=== PATIENT | female | born 1965 | race Asian ===

== ENCOUNTER 2016-09-10 19:33 | Emergency (ER) | payer OTHER ==
[2016-09-10] MEDS ORDERED: IV NORMAL SALINE 1000ML BAG 1,000 ML IV ONE (20:15)
[2016-09-10] MEDS ORDERED: KETOROLAC TROMETHAMINE 30 MG/ML INJ. IV ONE (20:15)
[2016-09-10] MEDS ORDERED: DIPHENHYDRAMINE 50 MG/ML VIAL. IVP ONE (20:15)
[2016-09-10] MEDS ORDERED: METOCLOPRAMIDE HCL 10 MG/2 ML VIAL. IV ONE (20:15)
[2016-09-10 20:16] LABS: BASO % 0 % (0-3); EOS % 2 % (0-3); HEMATOCRIT 34.8 % (36.0-47.0); HEMOGLOBIN 11.2 g/dL (12.0-15.5); LYMPH # 2.5 x10^3/uL (1.0-4.8); LYMPH % 26 % (24-48); MEAN CORPUSCULAR HEMOGLOBIN 23 pg (25-35); MEAN CORPUSCULAR HGB CONC 32 g/dL (31-37); MEAN CORPUSCULAR VOLUME 71 fL (79-100); MONO % 6 % (0-9); NEUT % 66 % (31-73); PLATELET COUNT 268 x10^3/uL (140-400); RED BLOOD COUNT 4.88 x10^6/uL (3.50-5.40); RED CELL DISTRIBUTION WIDTH 16.5 % (11.5-14.5); WHITE BLOOD COUNT 9.5 x10^3/uL (4.0-11.0)
[2016-09-10] MEDS ORDERED: BUTA1CAP29 PO (20:34)
--- NOTE | 2016-09-10 20:35 | PHYS DOC ---
Past Medical History Past Medical History: No Pertinent History Past Surgical History: No Surgical History Alcohol Use: None Drug Use: None Adult General Chief Complaint Chief Complaint: HEADACHE HPI HPI 51-year-old female presents with one-day history of a headache. Patient states she has a history of headaches and this is similar to previous. She denies any fever or neck pain. She denies any lateralizing neurologic weakness. She has had some tingling in her fingers. She denies any photo or phonophobia. She states the headache came on gradually. The history was taken from the daughter who acted as a band and cuff cutter. [] Review of Systems Review of Systems Constitutional: Denies fever or chills [] Eyes: Denies change in visual acuity, redness, or eye pain [] HENT: Denies nasal congestion or sore throat [] Respiratory: Denies cough or shortness of breath [] Cardiovascular: No additional information not addressed in HPI [] GI: Denies abdominal pain, nausea, vomiting, bloody stools or diarrhea [] : Denies dysuria or hematuria [] Musculoskeletal: Denies back pain or joint pain [] Integument: Denies rash or skin lesions [] Neurologic: Denies headache, focal weakness or sensory changes [] Endocrine: Denies polyuria or polydipsia [] Current Medications Current Medications Current Medications Medications (Trade) Dose Ordered Sig/Dionicio Start Time Stop Time Status Last Admin Dose Admin Diphenhydramine HCl 25 mg 25 mg 1X ONCE 09/10/16 20:15 09/10/16 20:16 DC 09/10/16 20:28 25 MG Ketorolac Tromethamine (Toradol) 30 mg 1X ONCE 09/10/16 20:15 09/10/16 20:16 DC 09/10/16 20:27 30 MG Metoclopramide HCl (Reglan) 10 mg 1X ONCE 09/10/16 20:15 09/10/16 20:16 DC 09/10/16 20:28 10 MG Sodium Chloride (Iv Sodium Chloride 0.9% 1000ml Bag) 1,000 ml @ 1,000 mls/hr 1X ONCE 09/10/16 20:15 09/10/16 21:14 DC 09/10/16 20:27 1,000 MLS/HR Allergies Allergies Allergies Coded Allergies Type Severity Reaction Last Updated Verified No Known Drug Allergies 4/3/17 No Physical Exam Physical Exam Constitutional: Well developed, well nourished, no acute distress, non-toxic appearance. [] HENT: Normocephalic, atraumatic, bilateral external ears normal, oropharynx moist, no oral exudates, nose normal. [] Eyes: PERRLA, EOMI, conjunctiva normal, no discharge. [] Neck: Normal range of motion, no tenderness, supple, no stridor. [] Cardiovascular:Heart rate regular rhythm, no murmur [] Lungs & Thorax: Bilateral breath sounds clear to auscultation [] Abdomen: Bowel sounds normal, soft, no tenderness, no masses, no pulsatile masses. [] Skin: Warm, dry, no erythema, no rash. [] Back: No tenderness, no CVA tenderness. [] Extremities: No tenderness, no cyanosis, no clubbing, ROM intact, no edema. [] Neurologic: Alert and oriented X 3, normal motor function, normal sensory function, no focal deficits noted. [] Psychologic: Affect normal, judgement normal, mood normal. [] Current Patient Data Vital Signs Vital Signs Date Time Temp Pulse Resp B/P Pulse Ox O2 Delivery O2 Flow Rate FiO2 09/10/16 19:45 99.5 74 20 158/88 98 Room Air 99.5 Lab Values Laboratory Tests Test 09/10/16 20:00 White Blood Count 9.5x10^3/uL (4.0-11.0) Red Blood Count 4.88x10^6/uL (3.50-5.40) Hemoglobin 11.2g/dL (12.0-15.5) L Hematocrit 34.8% (36.0-47.0) L Mean Corpuscular Volume 71fL (79-100) L Mean Corpuscular Hemoglobin 23pg (25-35) L Mean Corpuscular Hemoglobin Concent 32g/dL (31-37) Red Cell Distribution Width 16.5% (11.5-14.5) H Platelet Count 268x10^3/uL (140-400) Neutrophils (%) (Auto) 66% (31-73) Lymphocytes (%) (Auto) 26% (24-48) Monocytes (%) (Auto) 6% (0-9) Eosinophils (%) (Auto) 2% (0-3) Basophils (%) (Auto) 0% (0-3) Neutrophils # (Auto) 6.3x10^3uL (1.8-7.7) Lymphocytes # (Auto) 2.5x10^3/uL (1.0-4.8) Monocytes # (Auto) 0.6x10^3/uL (0.0-1.1) Eosinophils # (Auto) 0.1x10^3/uL (0.0-0.7) Basophils # (Auto) 0.0x10^3/uL (0.0-0.2) Platelet Estimate Adequate (ADEQUATE) Hypochromasia Mod Poikilocytosis Slight Microcytosis Mod Sodium Level 144mmol/L (136-145) Potassium Level 3.1mmol/L (3.5-5.1) L Chloride Level 107mmol/L (98-107) Carbon Dioxide Level 26mmol/L (21-32) Anion Gap 11 (6-14) Blood Urea Nitrogen 12mg/dL (7-20) Creatinine 0.6mg/dL (0.6-1.0) Estimated GFR (Cockcroft-Gault) 105.4 BUN/Creatinine Ratio 20 (6-20) Glucose Level 107mg/dL (70-99) H Calcium Level 9.2mg/dL (8.5-10.1) Total Bilirubin 0.2mg/dL (0.2-1.0) Aspartate Amino Transferase (AST) 11U/L (15-37) L Alanine Aminotransferase (ALT) 16U/L (14-59) Alkaline Phosphatase 77U/L (46-116) Total Protein 8.1g/dL (6.4-8.2) Albumin 3.8g/dL (3.4-5.0) Albumin/Globulin Ratio 0.9 (1.0-1.7) L Laboratory Tests 09/10/16 20:00 Laboratory Tests 09/10/16 20:00 EKG EKG [] Radiology/Procedures Radiology/Procedures [] Course & Med Decision Making Course & Med Decision Making Pertinent Labs and Imaging studies reviewed. (See chart for details) [ED course: Evaluation reveals a 51-year-old female in mild to moderate distress secondary to headache. CT scan did not show any acute findings. She was given IV fluids Reglan and Toradol and Benadryl which completely alleviated her headache she states she feels much better and is ready to go home.] Dragon Disclaimer Dragon Disclaimer This electronic medical record was generated, in whole or in part, using a voice recognition dictation system. Departure Departure Impression: Primary Impression: Migraine Disposition: HOME, SELF-CARE Condition: STABLE Referrals: NO PCP (PCP) Patient Instructions: Migraine Headache Additional Instructions: Thank you for allowing us to participate in your care today. Followup with your primary care physician in 3 days if your symptoms do not improve. Return to the emergency department you have any new or concerning findings. This should be evaluated by the primary care physician and any necessary consulting services for continued management within a few days after discharge. Return to emergency room if you have any new or concerning symptoms including but not limited to fever, chills, nausea, vomiting, intractable pain, any new rashes, chest pain, shortness of air, uncontrolled bleeding, difficulty breathing, and/or vision loss. You may have been prescribed medication that can change in your level of thinking and ability to operate machinery. These medications include hydrocodone and Ativan. Also, Benadryl has been known to do this as well. Be sure to check with your pharmacist and ask if the medications you've prescribed can affect your level of consciousness. I recommend not operating heavy machinery or driving while on medication such as these. Scripts Butalb/Acetaminophen/Caffeine (Fioricet 50-300-40 Mg Capsule)1 Each Capsule1 Each PO PRN Q4HRS PRN MIGRAINE HEADACHE #14 CAP Prov:LUIS ALBERTO TINEO DO 09/10/16 Problem Qualifiers Primary Impression: Migraine Migraine type: unspecified Status migrainosus presence: without status migrainosus Intractability: not intractable Qualified Code: G43.909 - Migraine, unspecified, not intractable, without status migrainosus LUIS ALBERTO TINEO DO Sep 10, 2016 20:35
[2016-09-10 20:37] LABS: CALCIUM 9.2 mg/dL (8.5-10.1); CREATININE 0.6 mg/dL (0.6-1.0); GFR 105.4; POTASSIUM 3.1 mmol/L (3.5-5.1)
[2016-09-10 20:43] LABS: ALBUMIN 3.8 g/dL (3.4-5.0); ALBUMIN/GLOBULIN RATIO 0.9 (1.0-1.7); TOTAL BILIRUBIN 0.2 mg/dL (0.2-1.0); TOTAL PROTEIN 8.1 g/dL (6.4-8.2)
[2016-09-10 20:51] LABS: PLT ESTIMATE ADEQUATE (ADEQUATE)
[2016-09-10 20:52] LABS: HYPOCHROMIA MOD; MICROCYTOSIS MOD; POIKILOCYTOSIS SLIGHT
--- NOTE | 2016-09-10 20:56 | RAD ---
PROCEDURE CT scan of head without contrast 09/10/2016 HISTORY Severe headaches and dizziness. TECHNIQUE Unenhanced contiguous, 5 millimeter axial sections were obtained through the head. One or more of the following individualized dose reduction techniques were utilized for this study: 1. Automated exposure control. 2. Adjustment of the mA and/or kV according to patient size. 3. Use of iterative reconstruction technique. FINDINGS The ventricles and sulci are within normal limits in size and configuration. No area of abnormal attenuation is seen involving the brain parenchyma. No extra-axial fluid collection is seen. No skull fracture is noted. IMPRESSION Negative study. Electronically signed by: Leonid Howe MD (Sep 10, 2016 20:55:46)
[2016-09-10 21:55] VITALS: BP 133/76
== END 2016-09-10 22:24 | disposition home or self-care (01) ==
LOC: ER 19:33
DX: G43.909 Migraine, unspecified, not intractable, without status migrainosus (principal)
CPT/HCPCS: 36415; 70450; 80053; 85007; 85027; 96361; 96374; 96375; 99285; J1200; J1885; J2765; J7030

== ENCOUNTER 2017-04-28 15:59 | Inpatient (IN) | payer OTHER ==
[~2017-04-28] VITALS: Ht 160 cm; Wt 58.1 kg
[~2017-04-28 15:59] MED LIST: BUTA1CAP29 PO
[2017-04-28] MEDS ORDERED: IV NORMAL SALINE 1000ML BAG 1,000 ML IV SCH (16:22)
[2017-04-28] MEDS ORDERED: MORPHINE SULFATE 2 MG/ML DISP.SYRIN. IV/SQ PRN (16:30)
--- NOTE | 2017-04-28 16:41 | PHYS DOC ---
Past Medical History Past Medical History: No Pertinent History, Other Additional Past Medical Histor: MIGRAINES Past Surgical History: No Surgical History Alcohol Use: None Drug Use: None Adult General Chief Complaint Chief Complaint: GI PROBLEM HPI HPI Patient is a 51 year old female who presents with epigastric pain. She states it started yesterday is been constant but getting worse over the last 24 hours. She denies any nausea but has had one episode of diarrhea. She denies any blood in her stools. She denies any vomiting. She never had pain like this before. She states is located in epigastric area and radiates around her left side to her back. She denies any chest pain. She denies any history of tobacco abuse and denies any history of coronary artery disease. Her [id number] is helping interpret. Review of Systems Review of Systems Constitutional: Denies fever or chills [] Eyes: Denies change in visual acuity, redness, or eye pain [] HENT: Denies nasal congestion or sore throat [] Respiratory: Denies cough or shortness of breath [] Cardiovascular: No additional information not addressed in HPI [] GI: Positive for abdominal pain and one eposide of diarrhea , Denies nausea, vomiting, bloody stools [] : Denies dysuria or hematuria [] Musculoskeletal: Denies back pain or joint pain [] Integument: Denies rash or skin lesions [] Neurologic: Denies headache, focal weakness or sensory changes [] Endocrine: Denies polyuria or polydipsia [] All other systems were reviewed and found to be within normal limits, except as documented in this note. Current Medications Current Medications Current Medications Medications (Trade) Dose Ordered Sig/Dionicio Start Time Stop Time Status Last Admin Dose Admin Info (Do NOT chart on this entry -- for MONITORING) 1 each PRN DAILY PRN 04/28/17 17:15 04/30/17 17:14 Iohexol (Omnipaque 300 Mg/ml) 75 ml 1X ONCE 04/28/17 17:00 04/28/17 17:02 DC 04/28/17 17:30 75 ML Morphine Sulfate 2 mg PRN Q15MIN PRN 04/28/17 16:30 04/29/17 16:29 04/28/17 16:50 2 MG Ondansetron HCl (Zofran) 4 mg STK-MED ONCE 04/28/17 16:48 04/28/17 16:49 DC Piperacillin Sod/ Tazobactam Sod (Zosyn Per Pharmacy) 1 each PRN DAILY PRN 04/28/17 19:00 UNV Piperacillin Sod/ Tazobactam Sod (Zosyn) 3.375 gm ONCE ONCE 04/28/17 19:00 04/28/17 19:01 Sodium Chloride 1,000 ml @ 1,000 mls/hr Q1H 04/28/17 16:22 04/28/17 17:21 DC 04/28/17 16:46 1,000 MLS/HR Allergies Allergies Allergies Coded Allergies Type Severity Reaction Last Updated Verified No Known Drug Allergies 09/10/16 No Physical Exam Physical Exam Constitutional: Well developed, well nourished, no acute distress, non-toxic appearance. [] HENT: Normocephalic, atraumatic, bilateral external ears normal, oropharynx moist, no oral exudates, nose normal. [] Eyes: PERRLA, EOMI, conjunctiva normal, no discharge. [] Neck: Normal range of motion, no tenderness, supple, no stridor. [] Cardiovascular:Heart rate regular rhythm, no murmur [] Lungs & Thorax: Bilateral breath sounds clear to auscultation [] Abdomen: Bowel sounds normal, soft, mild tender palpation epigastric area and right upper quadrant, no rebound or guarding noted, no masses, no pulsatile masses. [] Skin: Warm, dry, no erythema, no rash. [] Back: No tenderness, no CVA tenderness. [] Extremities: No tenderness, no cyanosis, no clubbing, ROM intact, no edema. [] Neurologic: Alert and oriented X 3, normal motor function, normal sensory function, no focal deficits noted. [] Psychologic: Affect normal, judgement normal, mood normal. [] Current Patient Data Vital Signs Vital Signs Date Time Temp Pulse Resp B/P (MAP) Pulse Ox O2 Delivery O2 Flow Rate FiO2 04/28/17 17:18 83 20 144/85 (104) 98 Room Air 04/28/17 16:00 98.1 98.1 Lab Values Laboratory Tests Test 04/28/17 16:30 White Blood Count 11.5 x10^3/uL (4.0-11.0) H Red Blood Count 4.67 x10^6/uL (3.50-5.40) Hemoglobin 10.7 g/dL (12.0-15.5) L Hematocrit 33.0 % (36.0-47.0) L Mean Corpuscular Volume 71 fL (79-100) L Mean Corpuscular Hemoglobin 23 pg (25-35) L Mean Corpuscular Hemoglobin Concent 32 g/dL (31-37) Red Cell Distribution Width 16.6 % (11.5-14.5) H Platelet Count 248 x10^3/uL (140-400) Neutrophils (%) (Auto) 83 % (31-73) H Lymphocytes (%) (Auto) 10 % (24-48) L Monocytes (%) (Auto) 6 % (0-9) Eosinophils (%) (Auto) 1 % (0-3) Basophils (%) (Auto) 0 % (0-3) Neutrophils # (Auto) 9.6 x10^3uL (1.8-7.7) H Lymphocytes # (Auto) 1.1 x10^3/uL (1.0-4.8) Monocytes # (Auto) 0.6 x10^3/uL (0.0-1.1) Eosinophils # (Auto) 0.1 x10^3/uL (0.0-0.7) Basophils # (Auto) 0.1 x10^3/uL (0.0-0.2) Platelet Estimate Adequate (ADEQUATE) Hypochromasia Mod Anisocytosis Slight Microcytosis Mod Ovalocytes Occ Prothrombin Time 13.2 SEC (11.7-14.0) Prothrombin Time INR 1.1 (0.8-1.1) Urine Collection Type Unknown Urine Color Straw Urine Clarity Clear Urine pH 5.5 Urine Specific [place] 1.010 Urine Protein Negative mg/dL (NEG-TRACE) Urine Glucose (UA) Negative mg/dL (NEG) Urine Ketones (Stick) Negative mg/dL (NEG) Urine Blood Negative (NEG) Urine Nitrite Negative (NEG) Urine Bilirubin Negative (NEG) Urine Urobilinogen Dipstick 0.2 mg/dL (0.2 mg/dL) Urine Leukocyte Esterase Negative (NEG) Urine RBC 0 /HPF (0-2) Urine WBC Rare /HPF (0-4) Urine Squamous Epithelial Cells Mod /LPF Urine Bacteria Moderate /HPF (0-FEW) Urine Mucus Slight /LPF Sodium Level 139 mmol/L (136-145) Potassium Level 3.3 mmol/L (3.5-5.1) L Chloride Level 105 mmol/L (98-107) Carbon Dioxide Level 25 mmol/L (21-32) Anion Gap 9 (6-14) Blood Urea Nitrogen 12 mg/dL (7-20) Creatinine 0.6 mg/dL (0.6-1.0) Estimated GFR (Cockcroft-Gault) 105.4 Glucose Level 136 mg/dL (70-99) H Calcium Level 9.0 mg/dL (8.5-10.1) Magnesium Level 1.6 mg/dL (1.8-2.4) L Total Bilirubin 0.3 mg/dL (0.2-1.0) Direct Bilirubin < 0.1 mg/dL (0.0-0.2) Aspartate Amino Transferase (AST) 8 U/L (15-37) L Alanine Aminotransferase (ALT) 15 U/L (14-59) Alkaline Phosphatase 83 U/L (46-116) Creatine Kinase 62 U/L (26-192) Creatine Kinase MB (Mass) < 0.5 ng/mL (0.0-3.6) Creatine Kinase MB Relative Index 0.8 % (0-4) Troponin I Quantitative < 0.017 ng/mL (0.000-0.055) MD-Fxn-I-Type Natriuretic Peptide 205 pg/mL (0-124) H Total Protein 7.8 g/dL (6.4-8.2) Albumin 3.9 g/dL (3.4-5.0) Lipase 105 U/L (73-393) Urine Opiates Screen Neg (NEG) Urine Methadone Screen Neg (NEG) Urine Barbiturates Neg (NEG) Urine Phencyclidine Screen Neg (NEG) Urine Amphetamine/Methamphetamine Neg (NEG) Urine Benzodiazepines Screen Neg (NEG) Urine Cocaine Screen Neg (NEG) Urine Cannabinoids Screen Neg (NEG) Urine Ethyl Alcohol Neg (NEG) Laboratory Tests 04/28/17 16:30 Laboratory Tests 04/28/17 16:30 EKG EKG EKG shows sinus rhythm with rate of [address] elevations, T-wave inversion in lead 3, normal axis, QTC 538 ms, as interpreted by me. Radiology/Procedures Radiology/Procedures [facility] [address] [place] [address] IMAGING REPORT Signed PATIENT: TIN TAFOYA ACCOUNT: [id number] : 1965 LOCATION: ER AGE: 51 SEX: F EXAM STATUS: REG ER ORD. PHYSICIAN: BURT HERNANDEZ MD REASON: abd pain PROCEDURE: CT ABD PELV W/ IV CONTRST ONLY CT abdomen and pelvis with contrast TECHNIQUE: Helical CT imaging of the abdomen and pelvis acquired with 75 mL Omnipaque 300 intravenous contrast. HISTORY: Epigastric abdominal pain, diarrhea, left flank pain. Abdomen findings: Mild dependent lower lobe groundglass density likely atelectasis. L5-S1 disc bulge and bilateral L5 spondylolysis with spinal canal and neural foraminal stenoses and grade 1 L5 anterolisthesis. Gallstones and distended gallbladder with gallbladder wall edema and possible pericholecystic fluid. Kidneys, adrenal glands, pancreas, spleen and liver are unremarkable. Appendix is negative. No obstruction or inflammation of the GI tract. No adenopathy. Pelvis findings: Retroverted uterus. Ovaries, bladder, rectum and bones are unremarkable. No adenopathy. IMPRESSION: 1. Cholecystitis with gallstones, gallbladder distention, gallbladder wall thickening with edema and pericholecystic fluid. 2. Appendix is negative. Exposure: One or more of the following individualized dose reduction techniques were utilized for this examination: 1. Automated exposure control 2. Adjustment of the mA and/or kV according to patient size 3. Use of iterative reconstruction technique Electronically signed by: Jalen Jenkins MD (04/28/2017 6:22 PM) [facility] DICTATED and SIGNED BY: JALEN JENKINS MD DATE: 04/28/171816 CC: BURT HERNANDEZ MD; NO PCP ~ [facility] [address] [place] [address] IMAGING REPORT Signed PATIENT: TIN TAFOYA ACCOUNT: [id number] : 1965 LOCATION: ER AGE: 51 SEX: F EXAM STATUS: REG ER ORD. PHYSICIAN: BURT HERNANDEZ MD REASON: chest pain/13 PROCEDURE: ACUTE ABDOMEN SERIES ACUTE ABDOMEN SERIES History: chest pain/13 , upper abdominal pain Comparison: None. Findings: Frontal chest and supine and upright views of the abdomen. Cardiomediastinal silhouette is normal. There is no pleural effusion or pneumothorax. The lungs are clear. No pneumoperitoneum is identified. No air-fluid levels on the upright image are seen. Air-filled small bowel is not overtly dilated. Scattered air in colon. IMPRESSION: 1. No acute cardiopulmonary process. 2. Nonobstructive bowel gas pattern. DICTATED and SIGNED BY: ERIN LOVE MD DATE: 04/28/171706 CC: BURT HERNANDEZ MD; NO PCP ~ Impressions: Cholecystitis Course & Med Decision Making Course & Med Decision Making Pertinent Labs and Imaging studies reviewed. (See chart for details) She scan confirms acute cholecystitis. Spoke with Dr. River regarding the CT scan findings, and labs, vitals, physical exam. Started patient on Zosyn and made nothing by mouth after midnight. She started on IV fluids. Patient's pain is controlled this time. In addition to her nausea. Patient's agreeable plan, the patient's [id number] was used as an rn midwife. He is being admitted to the hospitalist with the same information given. Dragon Disclaimer Dragon Disclaimer This electronic medical record was generated, in whole or in part, using a voice recognition dictation system. Departure Departure Impression: Primary Impression: Acute cholecystitis Disposition: ADMITTED INPATIENT Admitting Physician: Other Condition: STABLE Referrals: NO PCP (PCP) BURT HERNANDEZ MD Apr 28, 2017 16:41
[2017-04-28 16:45] LABS: BASO # 0.1 x10^3/uL (0.0-0.2); BASO % 0 % (0-3); EOS % 1 % (0-3); HEMOGLOBIN 10.7 g/dL (12.0-15.5); LYMPH # 1.1 x10^3/uL (1.0-4.8); LYMPH % 10 % (24-48); MEAN CORPUSCULAR HEMOGLOBIN 23 pg (25-35); MEAN CORPUSCULAR HGB CONC 32 g/dL (31-37); MEAN CORPUSCULAR VOLUME 71 fL (79-100); MONO % 6 % (0-9); NEUT % 83 % (31-73); PLATELET COUNT 248 x10^3/uL (140-400); RED BLOOD COUNT 4.67 x10^6/uL (3.50-5.40); RED CELL DISTRIBUTION WIDTH 16.6 % (11.5-14.5); WHITE BLOOD COUNT 11.5 x10^3/uL (4.0-11.0)
[2017-04-28] MEDS ORDERED: ONDANSETRON PF 4 MG/2 ML VIAL. ONE (16:48)
[2017-04-28 16:50] LABS: BILIRUBIN,URINE NEGATIVE (NEG); GLUCOSE,URINE NEGATIVE (NEG); NITRITE,URINE NEGATIVE (NEG); PH,URINE 5.5; PROTEIN,URINE NEGATIVE (NEG-TRACE); UROBILINOGEN,URINE 0.2 mg/dL (0.2 mg/dL)
[2017-04-28 16:51] LABS: BARBITURATES NEG (NEG); BENZODIAZEPINES NEG (NEG); CANNABINOIDS NEG (NEG); COCAINE NEG (NEG); METHADONE NEG (NEG); OPIATES NEG (NEG); PHENCYCLIDINE NEG (NEG)
[2017-04-28 16:58] LABS: INR 1.1 (0.8-1.1); PROTHROMBIN TIME PATIENT 13.2 SEC (11.7-14.0)
[2017-04-28] MEDS ORDERED: IOHEXOL 300 MG/ML 100ML VIAL. IV ONE (17:00)
[2017-04-28 17:05] LABS: ANION GAP 9 (6-14); BLOOD UREA NITROGEN 12 mg/dL (7-20); CARBON DIOXIDE 25 mmol/L (21-32); CHLORIDE 105 mmol/L (98-107); CREATININE 0.6 mg/dL (0.6-1.0); GFR 105.4; GLUCOSE 136 mg/dL (70-99); POTASSIUM 3.3 mmol/L (3.5-5.1); SODIUM 139 mmol/L (136-145)
[2017-04-28 17:07] LABS: BACTERIA,URINE MODERATE /HPF (0-FEW); RBC,URINE 0 /HPF (0-2); SQUAMOUS EPITHELIAL CELL,UR MOD /LPF; WBC,URINE RARE /HPF (0-4)
[2017-04-28 17:10] LABS: ALBUMIN 3.9 g/dL (3.4-5.0); ALK PHOS 83 U/L (46-116); ALT (SGPT) 15 U/L (14-59); AST (SGOT) 8 U/L (15-37); DIRECT BILIRUBIN < 0.1 mg/dL (0.0-0.2); MAGNESIUM 1.6 mg/dL (1.8-2.4); TOTAL BILIRUBIN 0.3 mg/dL (0.2-1.0); TOTAL PROTEIN 7.8 g/dL (6.4-8.2)
--- NOTE | 2017-04-28 17:14 | RAD ---
ACUTE ABDOMEN SERIES History: chest pain/13 , upper abdominal pain Comparison: None. Findings: Frontal chest and supine and upright views of the abdomen. Cardiomediastinal silhouette is normal. There is no pleural effusion or pneumothorax. The lungs are clear. No pneumoperitoneum is identified. No air-fluid levels on the upright image are seen. Air-filled small bowel is not overtly dilated. Scattered air in colon. IMPRESSION: 1. No acute cardiopulmonary process. 2. Nonobstructive bowel gas pattern.
[2017-04-28] MEDS ORDERED: CONTRAST GIVEN MC PRN (17:15)
[2017-04-28] MEDS ORDERED: ONDANSETRON PF 4 MG/2 ML VIAL. IV ONE (17:15)
[2017-04-28 17:19] LABS: CREATINE KINASE 62 U/L (26-192)
[2017-04-28 17:22] LABS: ANISOCYTOSIS SLIGHT; HYPOCHROMIA MOD; MICROCYTOSIS MOD; OVALOCYTES OCC; PLT ESTIMATE ADEQUATE (ADEQUATE)
[2017-04-28 17:25] LABS: CKMB MASS < 0.5 ng/mL (0.0-3.6)
--- NOTE | 2017-04-28 18:25 | RAD ---
CT abdomen and pelvis with contrast TECHNIQUE: Helical CT imaging of the abdomen and pelvis acquired with 75 mL Omnipaque 300 intravenous contrast. HISTORY: Epigastric abdominal pain, diarrhea, left flank pain. Abdomen findings: Mild dependent lower lobe groundglass density likely atelectasis. L5-S1 disc bulge and bilateral L5 spondylolysis with spinal canal and neural foraminal stenoses and grade 1 L5 anterolisthesis. Gallstones and distended gallbladder with gallbladder wall edema and possible pericholecystic fluid. Kidneys, adrenal glands, pancreas, spleen and liver are unremarkable. Appendix is negative. No obstruction or inflammation of the GI tract. No adenopathy. Pelvis findings: Retroverted uterus. Ovaries, bladder, rectum and bones are unremarkable. No adenopathy. IMPRESSION: 1. Cholecystitis with gallstones, gallbladder distention, gallbladder wall thickening with edema and pericholecystic fluid. 2. Appendix is negative. Exposure: One or more of the following individualized dose reduction techniques were utilized for this examination: 1. Automated exposure control 2. Adjustment of the mA and/or kV according to patient size 3. Use of iterative reconstruction technique Electronically signed by: Yair Jenkins MD (04/28/2017 6:22 PM) [facility]
[2017-04-28] MEDS ORDERED: ONDANSETRON PF 4 MG/2 ML VIAL. IV PRN (19:00)
[2017-04-28] MEDS ORDERED: PIP/TAZO PER PHARMACY MC PRN (19:00)
[2017-04-28] MEDS ORDERED: MORPHINE SULFATE 2 MG/ML DISP.SYRIN. IV PRN (19:00)
[2017-04-28] MEDS ORDERED: PIPERACILLIN/TAZO IV Push 3.375 GM VIAL. IVP ONE (19:00)
[2017-04-28] MEDS ORDERED: IV DEXTROSE 5 %-0.45 % NACL 1,000 ML IV ONE (19:15)
[2017-04-28 20:05] VITALS: BP 143/85
[2017-04-28] MEDS ORDERED: MORPHINE SULFATE 4 MG/ML DISP.SYRIN. IV/SQ PRN (20:45)
[2017-04-28] MEDS: MORPHINE SULFATE 4 MG/ML DISP.SYRIN. IV PRN ×2 (20:53→23:21)
[2017-04-28 21:31] LABS: % SAT IRON 4 % (15-34); IRON,SERUM 16 ug/dL (50-170)
[2017-04-28 23:00] VITALS: BP 153/97
--- NOTE | 2017-04-28 23:42 | HP ---
ADMIT DATE: 04/28/2017 CHIEF COMPLAINT: Right upper quadrant pain, nausea and vomiting. HISTORY OF PRESENT ILLNESS: The patient is a 51-year-old Turkmen who presented to the Emergency Room with a 2-day history of epigastric pain. She relates through an product sales engineer that pain is the subxiphoid in its worst location but stretches across the upper abdomen. The pain started about 2 days ago. She had some nausea with this and no vomiting but has had worsening pain with p.o. intake and therefore has limited this. She did have diarrhea x 1 yesterday as well none today, however. As pain continued sharp, stabbing and wrapping around towards her back, she decided to come to the hospital. She denies any shortness of breath or chest pain with this. Denies any fevers or chills and no sick contacts. Never had pain like this before. PAST MEDICAL HISTORY: None. FAMILY HISTORY: None. SOCIAL HISTORY: From [facility] and immigrated 6 years ago. No toxic habits. Lives with her family. ALLERGIES: No known drug allergies. HOME MEDICATIONS: Fioricet p.r.n. REVIEW OF SYSTEMS: Positive as per HPI. Rest of organ system review is negative. PHYSICAL EXAMINATION: VITAL SIGNS: Show a blood pressure of 143/85, heart rate of 68, respiratory rate at 17 and she is afebrile. GENERAL: This is a well-nourished 51-year-old Turkmen awake, alert, in mild distress secondary to pain, morphine has worn off. HEENT: Shows no scleral icterus. NECK: Supple. LUNGS: Clear. HEART: Regular rate and rhythm. ABDOMEN: Has positive bowel sounds. Soft and had a moderate tenderness to palpation in the epigastric to right upper quadrant area along the rib margin. EXTREMITIES: Show no edema. SKIN: Warm, soft and dry without any rash. LABORATORY DATA: CBC with a WBC of 11.5, hemoglobin 10.7, MCV of 71 and platelets of 248. Chemistries with a BUN and creatinine of 12 and 0.6 and potassium at 3.3. LFTs within normal limits. Tox screen was negative as was urine. RADIOLOGICAL DATA: CT of the abdomen and pelvis shows cholecystitis with gallstones, gallbladder distention and gallbladder wall thickening with edema and pericholecystic fluid. ASSESSMENT AND PLAN: The patient is a 51-year-old Turkmen woman admitted with cholecystitis. Surgery has been consulted already and cholecystectomy is planned for tomorrow. We will try and keep her comfortable tonight with IV fluids. She has morphine available as well. Keep her n.p.o. after midnight. The patient does have significant microcytic anemia. We will obtain iron studies. Suspect she may be menorrhagia. CHARITY NATARAJAN MD DR: CARI/nts JOB#: [id number] / [id number] NORMAN
[2017-04-29] VITALS (11 sets, daily range): BP systolic 114–160; BP diastolic 74–97
[2017-04-29] MEDS: PIPERACILLIN/TAZO IV Push 3.375 GM VIAL. IVP SCH ×4 (00:51→17:49)
[2017-04-29] MEDS: MORPHINE SULFATE 4 MG/ML DISP.SYRIN. IV PRN ×6 (02:17→16:36)
[2017-04-29 05:18] LABS: CALCIUM 8.6 mg/dL (8.5-10.1); CREATININE 0.6 mg/dL (0.6-1.0); GFR 105.4; POTASSIUM 3.1 mmol/L (3.5-5.1)
[2017-04-29 05:20] LABS: BASO % 0 % (0-3); EOS % 0 % (0-3); HEMOGLOBIN 10.9 g/dL (12.0-15.5); LYMPH # 0.7 x10^3/uL (1.0-4.8); LYMPH % 5 % (24-48); MEAN CORPUSCULAR HEMOGLOBIN 23 pg (25-35); MEAN CORPUSCULAR HGB CONC 32 g/dL (31-37); MEAN CORPUSCULAR VOLUME 72 fL (79-100); MONO % 3 % (0-9); NEUT % 93 % (31-73); PLATELET COUNT 237 x10^3/uL (140-400); RED BLOOD COUNT 4.75 x10^6/uL (3.50-5.40); RED CELL DISTRIBUTION WIDTH 16.5 % (11.5-14.5); WHITE BLOOD COUNT 14.9 x10^3/uL (4.0-11.0)
--- NOTE | 2017-04-29 06:13 | EKG ---
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
[2017-04-29] MEDS ORDERED: IV RINGERS,LACTATED 1000ML 1,000 ML IV SCH (08:09)
--- NOTE | 2017-04-29 08:14 | PDOC2 ---
CONSULT Date of Consult Date of Consult DATE: 04/29/17 TIME: 08:08 Reason for Consult Reason for Consult: cholecystis Referring Physician Referring Physician: ER Identification/Chief Complaint Chief Complaint abdominal pain Problems: Source Source: Chart review, Patient History of Present Illness Reason for Visit: Family present and interprets for patient. Reports upper abdominal pain since Saturday. Some associated nausea, no emesis. Denies similar symptoms in past. No aggravating or alleviating factors. Past Medical History Past Medical History no pertinent hx Past Surgical History Past Surgical History: Appendectomy Social History No ALCOHOL: none Drugs: None Current Problem List Problem List Problems Medical Problems: (1) Acute cholecystitis Status: Acute Current Medications Current Medications Current Medications Morphine Sulfate 2 mg PRN Q15MIN PRN IV/SQ PAIN GREATER THAN 3/10 Last administered on 04/28/17 16:50; Start 04/28/17 at 16:30; Stop 04/28/17 at 20 :41; Status DC Sodium Chloride 1,000 ml @ 1,000 mls/hr Q1H IV Last administered on 16:46; Start 04/28/17 at 16:22; Stop 04/28/17 at 17:21; Status DC Ondansetron HCl (Zofran) 4 mg 1X ONCE IV Last administered on 04/28/17 16:50 ; Start 04/28/17 at 17:15; Stop 04/28/17 at 17:16; Status DC Ondansetron HCl (Zofran) 4 mg STK-MED ONCE .ROUTE ; Start 04/28/17 at 16:48; Stop 04/28/17 at 16:49; Status DC Iohexol (Omnipaque 300 Mg/ml) 75 ml 1X ONCE IV Last administered on 17:30; Start 04/28/17 at 17:00; Stop 04/28/17 at 17:02; Status DC Info (Do NOT chart on this entry -- for MONITORING) 1 each PRN DAILY PRN MC SEE COMMENTS; Start 04/28/17 at 17:15; Stop 04/30/17 at 17:14 Piperacillin Sod/ Tazobactam Sod (Zosyn Per Pharmacy) 1 each PRN DAILY PRN MC SEE COMMENTS; Start 04/28/17 at 19:00 Piperacillin Sod/ Tazobactam Sod (Zosyn) 3.375 gm ONCE ONCE IVP Last administered on 04/28/17 19:23; Start 04/28/17 at 19:00; Stop 04/28/17 at 19 :01; Status DC Ondansetron HCl (Zofran) 4 mg PRN Q8HRS PRN IV NAUSEA/VOMITING Last administered on 04/28/17 23:20; Start 04/28/17 at 19:00; Stop 04/29/17 at 18 :59 Morphine Sulfate 2 mg PRN Q2HR PRN IV PAIN; Start 04/28/17 at 19:00; Stop at 20:42; Status DC Dextrose/Sodium Chloride 1,000 ml @ 75 mls/hr 1X ONCE IV Last administered on 04/28/17 20:54; Start 04/28/17 at 19:15; Stop 04/29/17 at 08:34 Piperacillin Sod/ Tazobactam Sod (Zosyn) 3.375 gm Q6HRS IVP Last administered on 04/29/17 05:31; Start 04/29/17 at 00:00 Morphine Sulfate 2 mg PRN Q15MIN PRN IV/SQ PAIN GREATER THAN 3/10; Start 04/28 at 20:45; Stop 04/28/17 at 21:16; Status DC Morphine Sulfate 2 mg PRN Q2HR PRN IV PAIN Last administered on 04/29/17 07: 52; Start 04/28/17 at 20:42; Stop 04/29/17 at 18:59 Active Scripts Active Fioricet 50-300-40 Mg Capsule (Butalb/Acetaminophen/Caffeine) 1 Each Capsule 1 Each PO PRN Q4HRS PRN Allergies Allergies: Coded Allergies: No Known Drug Allergies (Unverified , 09/10/16) ROS General: No: Chills, Other (fevers) PSYCHOLOGICAL ROS: No: Anxiety, Depression Eyes: No Blurry vision, No Double vision HEENT: No: Heacaches, Sore Throat Hematological and Lymphatic: No: Bleeding Problems, Blood Clots Respiratory: YES: Shortness of breath (due to abd pain), No: Cough Cardiovascular: yes Chest Pain (due to abd pain), No Palpitations Gastrointestinal: Yes Other (see hpi) Genitourinary: No Dysuria, No Hematuria Musculoskeletal: No Joint Pain Neurological: No Confusion, No Numbness/Tingling Skin: No Pruritus, No Rash Physical Exam General: Alert, Oriented X3, Cooperative, No acute distress HEENT: PERRLA, Mucous membr. moist/pink Lungs: Clear to auscultation, Normal air movement Heart: Regular rate, Normal S1, Normal S2, No murmurs Abdomen: Soft, Other (ND, TTP epigastric, RUQ) Extremities: No clubbing, No cyanosis Skin: No rashes, No breakdown Neuro: Normal gait, Normal speech Psych/Mental Status: Mental status NL, Mood NL MUSCULOSKELETAL: No deformity, No swelling Vitals VITALS Vital Signs Date Time Temp Pulse Resp B/P (MAP) Pulse Ox O2 Delivery O2 Flow Rate FiO2 04/29/17 07:52 Room Air 04/29/17 04:49 14 04/29/17 03:00 96.9 75 160/96 (117) 95 96.9 Labs Labs Laboratory Tests Test 04/28/17 16:30 04/29/17 03:40 White Blood Count 11.5 x10^3/uL (4.0-11.0) 14.9 x10^3/uL (4.0-11.0) Red Blood Count 4.67 x10^6/uL (3.50-5.40) 4.75 x10^6/uL (3.50-5.40) Hemoglobin 10.7 g/dL (12.0-15.5) 10.9 g/dL (12.0-15.5) Hematocrit 33.0 % (36.0-47.0) 34.0 % (36.0-47.0) Mean Corpuscular Volume 71 fL (79-100) 72 fL (79-100) Mean Corpuscular Hemoglobin 23 pg (25-35) 23 pg (25-35) Mean Corpuscular Hemoglobin Concent 32 g/dL (31-37) 32 g/dL (31-37) Red Cell Distribution Width 16.6 % (11.5-14.5) 16.5 % (11.5-14.5) Platelet Count 248 x10^3/uL (140-400) 237 x10^3/uL (140-400) Neutrophils (%) (Auto) 83 % (31-73) 93 % (31-73) Lymphocytes (%) (Auto) 10 % (24-48) 5 % (24-48) Monocytes (%) (Auto) 6 % (0-9) 3 % (0-9) Eosinophils (%) (Auto) 1 % (0-3) 0 % (0-3) Basophils (%) (Auto) 0 % (0-3) 0 % (0-3) Neutrophils # (Auto) 9.6 x10^3uL (1.8-7.7) 13.8 x10^3uL (1.8-7.7) Lymphocytes # (Auto) 1.1 x10^3/uL (1.0-4.8) 0.7 x10^3/uL (1.0-4.8) Monocytes # (Auto) 0.6 x10^3/uL (0.0-1.1) 0.4 x10^3/uL (0.0-1.1) Eosinophils # (Auto) 0.1 x10^3/uL (0.0-0.7) 0.0 x10^3/uL (0.0-0.7) Basophils # (Auto) 0.1 x10^3/uL (0.0-0.2) 0.0 x10^3/uL (0.0-0.2) Platelet Estimate Adequate (ADEQUATE) Hypochromasia Mod Anisocytosis Slight Microcytosis Mod Ovalocytes Occ Prothrombin Time 13.2 SEC (11.7-14.0) Prothromb Time International Ratio 1.1 (0.8-1.1) Urine Collection Type Unknown Urine Color Straw Urine Clarity Clear Urine pH 5.5 Urine Specific [place] 1.010 Urine Protein Negative mg/dL (NEG-TRACE) Urine Glucose (UA) Negative mg/dL (NEG) Urine Ketones (Stick) Negative mg/dL (NEG) Urine Blood Negative (NEG) Urine Nitrite Negative (NEG) Urine Bilirubin Negative (NEG) Urine Urobilinogen Dipstick 0.2 mg/dL (0.2 mg/dL) Urine Leukocyte Esterase Negative (NEG) Urine RBC 0 /HPF (0-2) Urine WBC Rare /HPF (0-4) Urine Squamous Epithelial Cells Mod /LPF Urine Bacteria Moderate /HPF (0-FEW) Urine Mucus Slight /LPF Sodium Level 139 mmol/L (136-145) 137 mmol/L (136-145) Potassium Level 3.3 mmol/L (3.5-5.1) 3.1 mmol/L (3.5-5.1) Chloride Level 105 mmol/L (98-107) 102 mmol/L (98-107) Carbon Dioxide Level 25 mmol/L (21-32) 25 mmol/L (21-32) Anion Gap 9 (6-14) 10 (6-14) Blood Urea Nitrogen 12 mg/dL (7-20) 10 mg/dL (7-20) Creatinine 0.6 mg/dL (0.6-1.0) 0.6 mg/dL (0.6-1.0) Estimated GFR (Cockcroft-Gault) 105.4 105.4 Glucose Level 136 mg/dL (70-99) 193 mg/dL (70-99) Calcium Level 9.0 mg/dL (8.5-10.1) 8.6 mg/dL (8.5-10.1) Magnesium Level 1.6 mg/dL (1.8-2.4) Iron Level 16 ug/dL (50-170) Total Iron Binding Capacity 416 ug/dL (250-450) Iron Saturation 4 % (15-34) Ferritin 19 ng/mL (8-252) Total Bilirubin 0.3 mg/dL (0.2-1.0) Direct Bilirubin < 0.1 mg/dL (0.0-0.2) Aspartate Amino Transf (AST/SGOT) 8 U/L (15-37) Alanine Aminotransferase (ALT/SGPT) 15 U/L (14-59) Alkaline Phosphatase 83 U/L (46-116) Creatine Kinase 62 U/L (26-192) Creatine Kinase MB (Mass) < 0.5 ng/mL (0.0-3.6) Creatine Kinase MB Relative Index 0.8 % (0-4) Troponin I Quantitative < 0.017 ng/mL (0.000-0.055) HI-Oag-T-Type Natriuretic Peptide 205 pg/mL (0-124) Total Protein 7.8 g/dL (6.4-8.2) Albumin 3.9 g/dL (3.4-5.0) Lipase 105 U/L (73-393) Urine Opiates Screen Neg (NEG) Urine Methadone Screen Neg (NEG) Urine Barbiturates Neg (NEG) Urine Phencyclidine Screen Neg (NEG) Urine Amphetamine/Methamphetamine Neg (NEG) Urine Benzodiazepines Screen Neg (NEG) Urine Cocaine Screen Neg (NEG) Urine Cannabinoids Screen Neg (NEG) Urine Ethyl Alcohol Neg (NEG) Laboratory Tests Test 04/28/17 16:30 04/29/17 03:40 White Blood Count 11.5 x10^3/uL (4.0-11.0) 14.9 x10^3/uL (4.0-11.0) Red Blood Count 4.67 x10^6/uL (3.50-5.40) 4.75 x10^6/uL (3.50-5.40) Hemoglobin 10.7 g/dL (12.0-15.5) 10.9 g/dL (12.0-15.5) Hematocrit 33.0 % (36.0-47.0) 34.0 % (36.0-47.0) Mean Corpuscular Volume 71 fL (79-100) 72 fL (79-100) Mean Corpuscular Hemoglobin 23 pg (25-35) 23 pg (25-35) Mean Corpuscular Hemoglobin Concent 32 g/dL (31-37) 32 g/dL (31-37) Red Cell Distribution Width 16.6 % (11.5-14.5) 16.5 % (11.5-14.5) Platelet Count 248 x10^3/uL (140-400) 237 x10^3/uL (140-400) Neutrophils (%) (Auto) 83 % (31-73) 93 % (31-73) Lymphocytes (%) (Auto) 10 % (24-48) 5 % (24-48) Monocytes (%) (Auto) 6 % (0-9) 3 % (0-9) Eosinophils (%) (Auto) 1 % (0-3) 0 % (0-3) Basophils (%) (Auto) 0 % (0-3) 0 % (0-3) Neutrophils # (Auto) 9.6 x10^3uL (1.8-7.7) 13.8 x10^3uL (1.8-7.7) Lymphocytes # (Auto) 1.1 x10^3/uL (1.0-4.8) 0.7 x10^3/uL (1.0-4.8) Monocytes # (Auto) 0.6 x10^3/uL (0.0-1.1) 0.4 x10^3/uL (0.0-1.1) Eosinophils # (Auto) 0.1 x10^3/uL (0.0-0.7) 0.0 x10^3/uL (0.0-0.7) Basophils # (Auto) 0.1 x10^3/uL (0.0-0.2) 0.0 x10^3/uL (0.0-0.2) Platelet Estimate Adequate (ADEQUATE) Hypochromasia Mod Anisocytosis Slight Microcytosis Mod Ovalocytes Occ Prothrombin Time 13.2 SEC (11.7-14.0) Prothromb Time International Ratio 1.1 (0.8-1.1) Urine Collection Type Unknown Urine Color Straw Urine Clarity Clear Urine pH 5.5 Urine Specific [place] 1.010 Urine Protein Negative mg/dL (NEG-TRACE) Urine Glucose (UA) Negative mg/dL (NEG) Urine Ketones (Stick) Negative mg/dL (NEG) Urine Blood Negative (NEG) Urine Nitrite Negative (NEG) Urine Bilirubin Negative (NEG) Urine Urobilinogen Dipstick 0.2 mg/dL (0.2 mg/dL) Urine Leukocyte Esterase Negative (NEG) Urine RBC 0 /HPF (0-2) Urine WBC Rare /HPF (0-4) Urine Squamous Epithelial Cells Mod /LPF Urine Bacteria Moderate /HPF (0-FEW) Urine Mucus Slight /LPF Sodium Level 139 mmol/L (136-145) 137 mmol/L (136-145) Potassium Level 3.3 mmol/L (3.5-5.1) 3.1 mmol/L (3.5-5.1) Chloride Level 105 mmol/L (98-107) 102 mmol/L (98-107) Carbon Dioxide Level 25 mmol/L (21-32) 25 mmol/L (21-32) Anion Gap 9 (6-14) 10 (6-14) Blood Urea Nitrogen 12 mg/dL (7-20) 10 mg/dL (7-20) Creatinine 0.6 mg/dL (0.6-1.0) 0.6 mg/dL (0.6-1.0) Estimated GFR (Cockcroft-Gault) 105.4 105.4 Glucose Level 136 mg/dL (70-99) 193 mg/dL (70-99) Calcium Level 9.0 mg/dL (8.5-10.1) 8.6 mg/dL (8.5-10.1) Magnesium Level 1.6 mg/dL (1.8-2.4) Iron Level 16 ug/dL (50-170) Total Iron Binding Capacity 416 ug/dL (250-450) Iron Saturation 4 % (15-34) Ferritin 19 ng/mL (8-252) Total Bilirubin 0.3 mg/dL (0.2-1.0) Direct Bilirubin < 0.1 mg/dL (0.0-0.2) Aspartate Amino Transf (AST/SGOT) 8 U/L (15-37) Alanine Aminotransferase (ALT/SGPT) 15 U/L (14-59) Alkaline Phosphatase 83 U/L (46-116) Creatine Kinase 62 U/L (26-192) Creatine Kinase MB (Mass) < 0.5 ng/mL (0.0-3.6) Creatine Kinase MB Relative Index 0.8 % (0-4) Troponin I Quantitative < 0.017 ng/mL (0.000-0.055) WT-Zzi-P-Type Natriuretic Peptide 205 pg/mL (0-124) Total Protein 7.8 g/dL (6.4-8.2) Albumin 3.9 g/dL (3.4-5.0) Lipase 105 U/L (73-393) Urine Opiates Screen Neg (NEG) Urine Methadone Screen Neg (NEG) Urine Barbiturates Neg (NEG) Urine Phencyclidine Screen Neg (NEG) Urine Amphetamine/Methamphetamine Neg (NEG) Urine Benzodiazepines Screen Neg (NEG) Urine Cocaine Screen Neg (NEG) Urine Cannabinoids Screen Neg (NEG) Urine Ethyl Alcohol Neg (NEG) Assessment/Plan Assessment/Plan cholecystitis hypokalemia--replacement ordered plan EFRA Virgen APRN Apr 29, 2017 08:14
[2017-04-29] MEDS ORDERED: ONDANSETRON PF 4 MG/2 ML VIAL. IV PRN (08:15)
[2017-04-29] MEDS ORDERED: HYDROmorphone 2 MG/ML VIAL IV PRN ×2 (08:15→16:45)
[2017-04-29] MEDS ORDERED: PROCHLORPERAZINE 10 MG/2 ML VIAL. IV PRN (08:15)
[2017-04-29] MEDS ORDERED: fentaNYL PF VIAL 100 MCG/2 ML VIAL IV PRN ×2 (08:15)
[2017-04-29] MEDS ORDERED: POTASSIUM CHLORIDE 20MEQ 50 ML IV ONE (08:15)
[2017-04-29] MEDS ORDERED: LIDOCAINE 1% PF 2 ML VIAL. ID PRN (08:15)
[2017-04-29] MEDS: POTASSIUM CHLORIDE 10 MEQ in IV NORMAL SALINE 100ML 100 ML IV SCH ×2 (09:47→11:13)
[2017-04-29] MEDS ORDERED: PROPOFOL 0 ML IV ONE (12:41)
[2017-04-29] MEDS ORDERED: ROCURONIUM 50 MG/5 ML VIAL. ONE (12:41)
[2017-04-29] MEDS ORDERED: LIDOCAINE 2% PF Vial for OR 5 ML VIAL. ONE (12:41)
[2017-04-29] MEDS ORDERED: DEXAMETHASONE SOD PHOS 20 MG/5 ML VIAL. ONE ×2 (12:41→14:22)
[2017-04-29] MEDS ORDERED: ONDANSETRON PF 4 MG/2 ML VIAL. ONE ×2 (12:41→14:22)
--- NOTE | 2017-04-29 13:13 | PDOC ---
PROGRESS NOTES Chief Complaint Chief Complaint (1) Acute cholecystitis History of Present Illness History of Present Illness Appears Nauseated, in Pain, and Depressed Abdominal pain persistent, with radiation to back. 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 Vitals Vitals Vital Signs Date Time Temp Pulse Resp B/P (MAP) Pulse Ox O2 Delivery O2 Flow Rate FiO2 04/29/17 11:13 Room Air 04/29/17 11:00 98.5 91 18 140/90 (107) 96 98.5 Physical Exam General: Alert, Oriented X3, Cooperative, moderate distress Heart: Regular rate, Normal S1, Normal S2, No murmurs, Gallops Lungs: Clear, Other (No wheezes , rhonchi, rales) Abdomen: Soft, Other (ND, TTP epigastric, RUQ) Extremities: No clubbing, No cyanosis Skin: No rashes, No breakdown Labs LABS Laboratory Tests Test 04/28/17 16:30 04/29/17 03:40 White Blood Count 11.5 x10^3/uL (4.0-11.0) 14.9 x10^3/uL (4.0-11.0) Red Blood Count 4.67 x10^6/uL (3.50-5.40) 4.75 x10^6/uL (3.50-5.40) Hemoglobin 10.7 g/dL (12.0-15.5) 10.9 g/dL (12.0-15.5) Hematocrit 33.0 % (36.0-47.0) 34.0 % (36.0-47.0) Mean Corpuscular Volume 71 fL (79-100) 72 fL (79-100) Mean Corpuscular Hemoglobin 23 pg (25-35) 23 pg (25-35) Mean Corpuscular Hemoglobin Concent 32 g/dL (31-37) 32 g/dL (31-37) Red Cell Distribution Width 16.6 % (11.5-14.5) 16.5 % (11.5-14.5) Platelet Count 248 x10^3/uL (140-400) 237 x10^3/uL (140-400) Neutrophils (%) (Auto) 83 % (31-73) 93 % (31-73) Lymphocytes (%) (Auto) 10 % (24-48) 5 % (24-48) Monocytes (%) (Auto) 6 % (0-9) 3 % (0-9) Eosinophils (%) (Auto) 1 % (0-3) 0 % (0-3) Basophils (%) (Auto) 0 % (0-3) 0 % (0-3) Neutrophils # (Auto) 9.6 x10^3uL (1.8-7.7) 13.8 x10^3uL (1.8-7.7) Lymphocytes # (Auto) 1.1 x10^3/uL (1.0-4.8) 0.7 x10^3/uL (1.0-4.8) Monocytes # (Auto) 0.6 x10^3/uL (0.0-1.1) 0.4 x10^3/uL (0.0-1.1) Eosinophils # (Auto) 0.1 x10^3/uL (0.0-0.7) 0.0 x10^3/uL (0.0-0.7) Basophils # (Auto) 0.1 x10^3/uL (0.0-0.2) 0.0 x10^3/uL (0.0-0.2) Platelet Estimate Adequate (ADEQUATE) Hypochromasia Mod Anisocytosis Slight Microcytosis Mod Ovalocytes Occ Prothrombin Time 13.2 SEC (11.7-14.0) Prothromb Time International Ratio 1.1 (0.8-1.1) Urine Collection Type Unknown Urine Color Straw Urine Clarity Clear Urine pH 5.5 Urine Specific Crawford 1.010 Urine Protein Negative mg/dL (NEG-TRACE) Urine Glucose (UA) Negative mg/dL (NEG) Urine Ketones (Stick) Negative mg/dL (NEG) Urine Blood Negative (NEG) Urine Nitrite Negative (NEG) Urine Bilirubin Negative (NEG) Urine Urobilinogen Dipstick 0.2 mg/dL (0.2 mg/dL) Urine Leukocyte Esterase Negative (NEG) Urine RBC 0 /HPF (0-2) Urine WBC Rare /HPF (0-4) Urine Squamous Epithelial Cells Mod /LPF Urine Bacteria Moderate /HPF (0-FEW) Urine Mucus Slight /LPF Sodium Level 139 mmol/L (136-145) 137 mmol/L (136-145) Potassium Level 3.3 mmol/L (3.5-5.1) 3.1 mmol/L (3.5-5.1) Chloride Level 105 mmol/L (98-107) 102 mmol/L (98-107) Carbon Dioxide Level 25 mmol/L (21-32) 25 mmol/L (21-32) Anion Gap 9 (6-14) 10 (6-14) Blood Urea Nitrogen 12 mg/dL (7-20) 10 mg/dL (7-20) Creatinine 0.6 mg/dL (0.6-1.0) 0.6 mg/dL (0.6-1.0) Estimated GFR (Cockcroft-Gault) 105.4 105.4 Glucose Level 136 mg/dL (70-99) 193 mg/dL (70-99) Calcium Level 9.0 mg/dL (8.5-10.1) 8.6 mg/dL (8.5-10.1) Magnesium Level 1.6 mg/dL (1.8-2.4) Iron Level 16 ug/dL (50-170) Total Iron Binding Capacity 416 ug/dL (250-450) Iron Saturation 4 % (15-34) Ferritin 19 ng/mL (8-252) Total Bilirubin 0.3 mg/dL (0.2-1.0) Direct Bilirubin < 0.1 mg/dL (0.0-0.2) Aspartate Amino Transf (AST/SGOT) 8 U/L (15-37) Alanine Aminotransferase (ALT/SGPT) 15 U/L (14-59) Alkaline Phosphatase 83 U/L (46-116) Creatine Kinase 62 U/L (26-192) Creatine Kinase MB (Mass) < 0.5 ng/mL (0.0-3.6) Creatine Kinase MB Relative Index 0.8 % (0-4) Troponin I Quantitative < 0.017 ng/mL (0.000-0.055) RZ-Pjo-P-Type Natriuretic Peptide 205 pg/mL (0-124) Total Protein 7.8 g/dL (6.4-8.2) Albumin 3.9 g/dL (3.4-5.0) Lipase 105 U/L (73-393) Urine Opiates Screen Neg (NEG) Urine Methadone Screen Neg (NEG) Urine Barbiturates Neg (NEG) Urine Phencyclidine Screen Neg (NEG) Urine Amphetamine/Methamphetamine Neg (NEG) Urine Benzodiazepines Screen Neg (NEG) Urine Cocaine Screen Neg (NEG) Urine Cannabinoids Screen Neg (NEG) Urine Ethyl Alcohol Neg (NEG) Review of Systems Review of Systems General: No Fever, chills, night sweats, CV: No chest pain, palpitations Pulm: No sob, dyspnea, hemoptysis Assessment and Plan Assessmemt and Plan Problems Medical Problems: (1) Acute cholecystitis Status: Acute Migraine Microcytic Anemia Hypokalemia Plan: Awaiting GI assessment and LapChole results for probable cholecystitis Order 40 mEq of KCL dt patients K+ <3.5 PT/OT Recheck Labs Problems: Comment Review of Relevant I have reviewed the following items tana (where applicable) has been applied. Labs Laboratory Tests Test 04/28/17 16:30 04/29/17 03:40 White Blood Count 11.5 x10^3/uL (4.0-11.0) 14.9 x10^3/uL (4.0-11.0) Red Blood Count 4.67 x10^6/uL (3.50-5.40) 4.75 x10^6/uL (3.50-5.40) Hemoglobin 10.7 g/dL (12.0-15.5) 10.9 g/dL (12.0-15.5) Hematocrit 33.0 % (36.0-47.0) 34.0 % (36.0-47.0) Mean Corpuscular Volume 71 fL (79-100) 72 fL (79-100) Mean Corpuscular Hemoglobin 23 pg (25-35) 23 pg (25-35) Mean Corpuscular Hemoglobin Concent 32 g/dL (31-37) 32 g/dL (31-37) Red Cell Distribution Width 16.6 % (11.5-14.5) 16.5 % (11.5-14.5) Platelet Count 248 x10^3/uL (140-400) 237 x10^3/uL (140-400) Neutrophils (%) (Auto) 83 % (31-73) 93 % (31-73) Lymphocytes (%) (Auto) 10 % (24-48) 5 % (24-48) Monocytes (%) (Auto) 6 % (0-9) 3 % (0-9) Eosinophils (%) (Auto) 1 % (0-3) 0 % (0-3) Basophils (%) (Auto) 0 % (0-3) 0 % (0-3) Neutrophils # (Auto) 9.6 x10^3uL (1.8-7.7) 13.8 x10^3uL (1.8-7.7) Lymphocytes # (Auto) 1.1 x10^3/uL (1.0-4.8) 0.7 x10^3/uL (1.0-4.8) Monocytes # (Auto) 0.6 x10^3/uL (0.0-1.1) 0.4 x10^3/uL (0.0-1.1) Eosinophils # (Auto) 0.1 x10^3/uL (0.0-0.7) 0.0 x10^3/uL (0.0-0.7) Basophils # (Auto) 0.1 x10^3/uL (0.0-0.2) 0.0 x10^3/uL (0.0-0.2) Platelet Estimate Adequate (ADEQUATE) Hypochromasia Mod Anisocytosis Slight Microcytosis Mod Ovalocytes Occ Prothrombin Time 13.2 SEC (11.7-14.0) Prothromb Time International Ratio 1.1 (0.8-1.1) Urine Collection Type Unknown Urine Color Straw Urine Clarity Clear Urine pH 5.5 Urine Specific Crawford 1.010 Urine Protein Negative mg/dL (NEG-TRACE) Urine Glucose (UA) Negative mg/dL (NEG) Urine Ketones (Stick) Negative mg/dL (NEG) Urine Blood Negative (NEG) Urine Nitrite Negative (NEG) Urine Bilirubin Negative (NEG) Urine Urobilinogen Dipstick 0.2 mg/dL (0.2 mg/dL) Urine Leukocyte Esterase Negative (NEG) Urine RBC 0 /HPF (0-2) Urine WBC Rare /HPF (0-4) Urine Squamous Epithelial Cells Mod /LPF Urine Bacteria Moderate /HPF (0-FEW) Urine Mucus Slight /LPF Sodium Level 139 mmol/L (136-145) 137 mmol/L (136-145) Potassium Level 3.3 mmol/L (3.5-5.1) 3.1 mmol/L (3.5-5.1) Chloride Level 105 mmol/L (98-107) 102 mmol/L (98-107) Carbon Dioxide Level 25 mmol/L (21-32) 25 mmol/L (21-32) Anion Gap 9 (6-14) 10 (6-14) Blood Urea Nitrogen 12 mg/dL (7-20) 10 mg/dL (7-20) Creatinine 0.6 mg/dL (0.6-1.0) 0.6 mg/dL (0.6-1.0) Estimated GFR (Cockcroft-Gault) 105.4 105.4 Glucose Level 136 mg/dL (70-99) 193 mg/dL (70-99) Calcium Level 9.0 mg/dL (8.5-10.1) 8.6 mg/dL (8.5-10.1) Magnesium Level 1.6 mg/dL (1.8-2.4) Iron Level 16 ug/dL (50-170) Total Iron Binding Capacity 416 ug/dL (250-450) Iron Saturation 4 % (15-34) Ferritin 19 ng/mL (8-252) Total Bilirubin 0.3 mg/dL (0.2-1.0) Direct Bilirubin < 0.1 mg/dL (0.0-0.2) Aspartate Amino Transf (AST/SGOT) 8 U/L (15-37) Alanine Aminotransferase (ALT/SGPT) 15 U/L (14-59) Alkaline Phosphatase 83 U/L (46-116) Creatine Kinase 62 U/L (26-192) Creatine Kinase MB (Mass) < 0.5 ng/mL (0.0-3.6) Creatine Kinase MB Relative Index 0.8 % (0-4) Troponin I Quantitative < 0.017 ng/mL (0.000-0.055) MG-Qvb-D-Type Natriuretic Peptide 205 pg/mL (0-124) Total Protein 7.8 g/dL (6.4-8.2) Albumin 3.9 g/dL (3.4-5.0) Lipase 105 U/L (73-393) Urine Opiates Screen Neg (NEG) Urine Methadone Screen Neg (NEG) Urine Barbiturates Neg (NEG) Urine Phencyclidine Screen Neg (NEG) Urine Amphetamine/Methamphetamine Neg (NEG) Urine Benzodiazepines Screen Neg (NEG) Urine Cocaine Screen Neg (NEG) Urine Cannabinoids Screen Neg (NEG) Urine Ethyl Alcohol Neg (NEG) Laboratory Tests Test 04/28/17 16:30 04/29/17 03:40 White Blood Count 11.5 x10^3/uL (4.0-11.0) 14.9 x10^3/uL (4.0-11.0) Red Blood Count 4.67 x10^6/uL (3.50-5.40) 4.75 x10^6/uL (3.50-5.40) Hemoglobin 10.7 g/dL (12.0-15.5) 10.9 g/dL (12.0-15.5) Hematocrit 33.0 % (36.0-47.0) 34.0 % (36.0-47.0) Mean Corpuscular Volume 71 fL (79-100) 72 fL (79-100) Mean Corpuscular Hemoglobin 23 pg (25-35) 23 pg (25-35) Mean Corpuscular Hemoglobin Concent 32 g/dL (31-37) 32 g/dL (31-37) Red Cell Distribution Width 16.6 % (11.5-14.5) 16.5 % (11.5-14.5) Platelet Count 248 x10^3/uL (140-400) 237 x10^3/uL (140-400) Neutrophils (%) (Auto) 83 % (31-73) 93 % (31-73) Lymphocytes (%) (Auto) 10 % (24-48) 5 % (24-48) Monocytes (%) (Auto) 6 % (0-9) 3 % (0-9) Eosinophils (%) (Auto) 1 % (0-3) 0 % (0-3) Basophils (%) (Auto) 0 % (0-3) 0 % (0-3) Neutrophils # (Auto) 9.6 x10^3uL (1.8-7.7) 13.8 x10^3uL (1.8-7.7) Lymphocytes # (Auto) 1.1 x10^3/uL (1.0-4.8) 0.7 x10^3/uL (1.0-4.8) Monocytes # (Auto) 0.6 x10^3/uL (0.0-1.1) 0.4 x10^3/uL (0.0-1.1) Eosinophils # (Auto) 0.1 x10^3/uL (0.0-0.7) 0.0 x10^3/uL (0.0-0.7) Basophils # (Auto) 0.1 x10^3/uL (0.0-0.2) 0.0 x10^3/uL (0.0-0.2) Platelet Estimate Adequate (ADEQUATE) Hypochromasia Mod Anisocytosis Slight Microcytosis Mod Ovalocytes Occ Prothrombin Time 13.2 SEC (11.7-14.0) Prothromb Time International Ratio 1.1 (0.8-1.1) Urine Collection Type Unknown Urine Color Straw Urine Clarity Clear Urine pH 5.5 Urine Specific Crawford 1.010 Urine Protein Negative mg/dL (NEG-TRACE) Urine Glucose (UA) Negative mg/dL (NEG) Urine Ketones (Stick) Negative mg/dL (NEG) Urine Blood Negative (NEG) Urine Nitrite Negative (NEG) Urine Bilirubin Negative (NEG) Urine Urobilinogen Dipstick 0.2 mg/dL (0.2 mg/dL) Urine Leukocyte Esterase Negative (NEG) Urine RBC 0 /HPF (0-2) Urine WBC Rare /HPF (0-4) Urine Squamous Epithelial Cells Mod /LPF Urine Bacteria Moderate /HPF (0-FEW) Urine Mucus Slight /LPF Sodium Level 139 mmol/L (136-145) 137 mmol/L (136-145) Potassium Level 3.3 mmol/L (3.5-5.1) 3.1 mmol/L (3.5-5.1) Chloride Level 105 mmol/L (98-107) 102 mmol/L (98-107) Carbon Dioxide Level 25 mmol/L (21-32) 25 mmol/L (21-32) Anion Gap 9 (6-14) 10 (6-14) Blood Urea Nitrogen 12 mg/dL (7-20) 10 mg/dL (7-20) Creatinine 0.6 mg/dL (0.6-1.0) 0.6 mg/dL (0.6-1.0) Estimated GFR (Cockcroft-Gault) 105.4 105.4 Glucose Level 136 mg/dL (70-99) 193 mg/dL (70-99) Calcium Level 9.0 mg/dL (8.5-10.1) 8.6 mg/dL (8.5-10.1) Magnesium Level 1.6 mg/dL (1.8-2.4) Iron Level 16 ug/dL (50-170) Total Iron Binding Capacity 416 ug/dL (250-450) Iron Saturation 4 % (15-34) Ferritin 19 ng/mL (8-252) Total Bilirubin 0.3 mg/dL (0.2-1.0) Direct Bilirubin < 0.1 mg/dL (0.0-0.2) Aspartate Amino Transf (AST/SGOT) 8 U/L (15-37) Alanine Aminotransferase (ALT/SGPT) 15 U/L (14-59) Alkaline Phosphatase 83 U/L (46-116) Creatine Kinase 62 U/L (26-192) Creatine Kinase MB (Mass) < 0.5 ng/mL (0.0-3.6) Creatine Kinase MB Relative Index 0.8 % (0-4) Troponin I Quantitative < 0.017 ng/mL (0.000-0.055) WD-Tmh-O-Type Natriuretic Peptide 205 pg/mL (0-124) Total Protein 7.8 g/dL (6.4-8.2) Albumin 3.9 g/dL (3.4-5.0) Lipase 105 U/L (73-393) Urine Opiates Screen Neg (NEG) Urine Methadone Screen Neg (NEG) Urine Barbiturates Neg (NEG) Urine Phencyclidine Screen Neg (NEG) Urine Amphetamine/Methamphetamine Neg (NEG) Urine Benzodiazepines Screen Neg (NEG) Urine Cocaine Screen Neg (NEG) Urine Cannabinoids Screen Neg (NEG) Urine Ethyl Alcohol Neg (NEG) Medications Current Medications Morphine Sulfate 2 mg PRN Q15MIN PRN IV/SQ PAIN GREATER THAN 3/10 Last administered on 04/28/17 16:50; Start 04/28/17 at 16:30; Stop 04/28/17 at 20 :41; Status DC Sodium Chloride 1,000 ml @ 1,000 mls/hr Q1H IV Last administered on 16:46; Start 04/28/17 at 16:22; Stop 04/28/17 at 17:21; Status DC Ondansetron HCl (Zofran) 4 mg 1X ONCE IV Last administered on 04/28/17 16:50 ; Start 04/28/17 at 17:15; Stop 04/28/17 at 17:16; Status DC Ondansetron HCl (Zofran) 4 mg STK-MED ONCE .ROUTE ; Start 04/28/17 at 16:48; Stop 04/28/17 at 16:49; Status DC Iohexol (Omnipaque 300 Mg/ml) 75 ml 1X ONCE IV Last administered on 17:30; Start 04/28/17 at 17:00; Stop 04/28/17 at 17:02; Status DC Info (Do NOT chart on this entry -- for MONITORING) 1 each PRN DAILY PRN MC SEE COMMENTS; Start 04/28/17 at 17:15; Stop 04/30/17 at 17:14 Piperacillin Sod/ Tazobactam Sod (Zosyn Per Pharmacy) 1 each PRN DAILY PRN MC SEE COMMENTS; Start 04/28/17 at 19:00 Piperacillin Sod/ Tazobactam Sod (Zosyn) 3.375 gm ONCE ONCE IVP Last administered on 04/28/17 19:23; Start 04/28/17 at 19:00; Stop 04/28/17 at 19 :01; Status DC Ondansetron HCl (Zofran) 4 mg PRN Q8HRS PRN IV NAUSEA/VOMITING Last administered on 04/28/17 23:20; Start 04/28/17 at 19:00; Stop 04/29/17 at 18 :59 Morphine Sulfate 2 mg PRN Q2HR PRN IV PAIN; Start 04/28/17 at 19:00; Stop at 20:42; Status DC Dextrose/Sodium Chloride 1,000 ml @ 75 mls/hr 1X ONCE IV Last administered on 04/28/17 20:54; Start 04/28/17 at 19:15; Stop 04/29/17 at 08:34; Status DC Piperacillin Sod/ Tazobactam Sod (Zosyn) 3.375 gm Q6HRS IVP Last administered on 04/29/17 12:41; Start 04/29/17 at 00:00 Morphine Sulfate 2 mg PRN Q15MIN PRN IV/SQ PAIN GREATER THAN 3/10; Start 04/28 at 20:45; Stop 04/28/17 at 21:16; Status DC Morphine Sulfate 2 mg PRN Q2HR PRN IV PAIN Last administered on 04/29/17t 11: 13; Start 04/28/17 at 20:42; Stop 04/29/17 at 18:59 Potassium Chloride 50 ml @ 50 mls/hr 1X ONCE IV ; Start 04/29/17 at 08:15; Stop 04/29/17 at 09:14; Status UNV Ondansetron HCl (Zofran) 4 mg PRN Q6HRS PRN IV NAUSEA/VOMITING; Start at 08:15; Stop 04/30/17 at 08:14 Fentanyl Citrate (Fentanyl 2ml Vial) 25 mcg PRN Q5MIN PRN IV MILD PAIN; Start 04/29/17 at 08:15; Stop 04/30/17 at 08:14 Fentanyl Citrate (Fentanyl 2ml Vial) 50 mcg PRN Q5MIN PRN IV MODERATE PAIN; Start 04/29/17 at 08:15; Stop 04/30/17 at 08:14 Morphine Sulfate 1 mg PRN Q10MIN PRN IV SEVERE PAIN; Start 04/29/17 at 08:15; Stop 04/30/17 at 08:14 Ringer's Solution 1,000 ml @ 30 mls/hr Q24H IV ; Start 04/29/17 at 08:09; Stop 04/29/17 at 20:08 Lidocaine HCl (Xylocaine-Mpf 1% Vial) 2 ml 1X PRN PRN ID IV START; Start 04/29 at 08:15; Stop 04/30/17 at 08:14 Hydromorphone HCl (Dilaudid) 0.5 mg PRN Q10MIN PRN IV SEV PAIN, Second choice; Start 04/29/17 at 08:15; Stop 04/30/17 at 08:14 Prochlorperazine Edisylate (Compazine) 5 mg PACU PRN PRN IV NAUSEA, MRX1; Start 04/29/17 at 08:15; Stop 04/30/17 at 08:14 Potassium Chloride 10 meq/ Sodium Chloride 105 ml @ 105 mls/hr Q1H IV Last administered on 04/29/17t 11:13; Start 04/29/17 at 08:30; Stop 04/29/17 at 10 :29; Status DC Dexamethasone Sodium Phosphate (Decadron) 20 mg STK-MED ONCE .ROUTE ; Start at 12:41; Stop 04/29/17 at 12:42; Status DC Ondansetron HCl (Zofran) 4 mg STK-MED ONCE .ROUTE ; Start 04/29/17 at 12:41; Stop 04/29/17 at 12:42; Status DC Propofol 20 ml @ As Directed STK-MED ONCE IV ; Start 04/29/17 at 12:41; Stop 04/29/17 at 12:42; Status DC Lidocaine HCl (Lidocaine Pf 2% Vial) 5 ml STK-MED ONCE .ROUTE ; Start 04/29/17 at 12:41; Stop 04/29/17 at 12:42; Status DC Rocuronium [place] (Zemuron) 50 mg STK-MED ONCE .ROUTE ; Start 04/29/17 at 12: 41; Stop 04/29/17 at 12:42; Status DC Active Scripts Active Fioricet 50-300-40 Mg Capsule (Butalb/Acetaminophen/Caffeine) 1 Each Capsule 1 Each PO PRN Q4HRS PRN Vitals/I & O Vital Sign - Last 24 Hours 04/28/17 04/28/17 04/28/17 04/28/17 16:00 16:50 17:18 18:20 Temp 98.1 98.1 Pulse 75 83 80 Resp 22 20 20 20 B/P (MAP) 158/89 (112) 144/85 (104) 117/50 (72) Pulse Ox 96 98 98 96 O2 Delivery Room Air Room Air Room Air 04/28/17 04/28/17 04/28/17 04/28/17 19:24 20:05 20:53 23:00 Temp 98.1 97.9 98.1 97.9 Pulse 78 68 64 Resp 18 17 16 18 B/P (MAP) 149/89 (109) 143/85 (104) 153/97 (115) Pulse Ox 98 97 O2 Delivery Room Air Room Air Room Air 04/28/17 04/29/17 04/29/17 04/29/17 23:21 02:17 03:00 03:10 Temp 96.9 96.9 Pulse 75 Resp 16 18 18 B/P (MAP) 160/96 (117) Pulse Ox 95 O2 Delivery Room Air Room Air Room Air Room Air 04/29/17 04/29/17 04/29/17 04/29/17 04:15 04:49 07:00 07:45 Temp 98.6 98.6 Pulse 79 Resp 16 14 20 B/P (MAP) 157/97 (117) Pulse Ox 96 O2 Delivery Room Air Room Air Room Air 04/29/17 04/29/17 04/29/17 04/29/17 07:52 08:24 08:40 11:00 Temp 98.5 98.5 Pulse 91 Resp 18 B/P (MAP) 140/90 (107) Pulse Ox 96 O2 Delivery Room Air Room Air Room Air Room Air 04/29/17 11:13 O2 Delivery Room Air Intake and Output 04/28/17 04/28/17 04/29/17 15:00 23:00 07:00 Intake Total 1000 ml 345 ml Balance 1000 ml 345 ml MUSTAPHA JIMENEZ III DO Apr 29, 2017 13:13
[2017-04-29] MEDS ORDERED: GLUCAGON,HUMAN RECOMBINANT 1 MG/ML VIAL. ONE ×2 (13:16→13:20)
[2017-04-29] MEDS ORDERED: BUPIVAC MPF-EPI 0.5%-1:200000 30 ML VIAL. ONE ×2 (13:16→13:25)
[2017-04-29] MEDS ORDERED: IOHEXOL 300 MG/ML 100ML VIAL. ONE (13:16)
[2017-04-29] MEDS ORDERED: SURGICEL HEMOSTAT 4X8 EACH. ONE (13:16)
[2017-04-29] MEDS ORDERED: MIDAZOLAM HCL/PF 2 MG/2 ML VIAL. ONE (13:42)
[2017-04-29] MEDS ORDERED: fentaNYL PF VIAL 100 MCG/2 ML VIAL ONE ×3 (13:42→15:08)
[2017-04-29] MEDS ORDERED: FAMOTIDINE 20 MG/2 ML VIAL ONE (14:22)
[2017-04-29] MEDS ORDERED: ESMOLOL 100 MG/10 ML VIAL. IV ONE (14:30)
[2017-04-29] MEDS ORDERED: BUPIVAC MPF-EPI 0.5%-1:200000 30 ML VIAL. INJ ONE (14:38)
[2017-04-29] MEDS ORDERED: IOHEXOL 300 MG/ML 100ML VIAL. IV ONE (14:43)
[2017-04-29] MEDS ORDERED: SURGICEL HEMOSTAT 4X8 EACH. TP ONE (14:54)
[2017-04-29] MEDS ORDERED: PROPOFOL 20 ML IV ONE ×2 (15:02)
[2017-04-29] MEDS ORDERED: NEOSTIGMINE 10 MG/10 ML VIAL. ONE (15:02)
[2017-04-29] MEDS ORDERED: GLYCOPYRROLATE 1 MG/5 ML VIAL. ONE (15:02)
--- NOTE | 2017-04-29 15:04 | RAD ---
Indication: Intraoperative cholangiogram. Fluoroscopy was performed during the performance of an intraoperative cholangiogram. 12 seconds of fluoroscopy time was utilized. 4 images were obtained. Images demonstrate contrast being injected via the cystic duct remnant. The visualized intrahepatic and extra hepatic bile ducts are normal caliber. No filling defects are seen to suggest retained stone. Contrast does flow into the duodenum. Impression: Fluoroscopy for intraoperative cholangiogram.
[2017-04-29] MEDS ORDERED: SEVOFLURANE 61 TO 120 MINUTES. IH ONE (15:26)
[2017-04-29] MEDS ORDERED: MORPHINE SULFATE 2 MG/ML DISP.SYRIN. ONE (16:15)
--- NOTE | 2017-04-29 16:32 | PDOC ---
BRIEF OPERATIVE NOTE Date: Apr 29, 2017 Pre-Op Diagnosis cholelithiasis with acute cholecystitis Post-Op Diagnosis same Procedure Performed l/s cholecystectomy with cholangiograms Surgeon Craig Anesthesia Type: General Blood Loss 25cc IV Fluid 1850cc Specimens Obtained GB Findings acute cholecystitis, normal grams Complications none Operative Note Wk # [id number] RITO MARCOS MD Apr 29, 2017 16:32
--- NOTE | 2017-04-29 16:42 | OP ---
DATE OF SURGERY: 04/29/2017 PREOPERATIVE DIAGNOSIS: Cholelithiasis with acute cholecystitis. POSTOPERATIVE DIAGNOSIS: Cholelithiasis with acute cholecystitis. PROCEDURE: Laparoscopic cholecystectomy with cholangiogram. SURGEON: Mark Marcos MD ANESTHESIA: General endotracheal. ESTIMATED BLOOD LOSS: 25 mL. IV FLUID: 1850. SPECIMEN: Gallbladder. FINDINGS: Acute cholecystitis with normal grams. DESCRIPTION OF PROCEDURE: The patient brought to the operating suite, given a general endotracheal anesthetic and the abdomen prepped and draped in usual sterile fashion. A supraumbilical incision was infiltrated with local anesthetic, incised and a 5 mm Visiport used to safely gain access into the abdominal cavity. Pneumoperitoneum established. Camera inserted. Inspection carried out with results as noted above. With the table rolled to the left and in reverse Trendelenburg, the epigastric, midclavicular, and lateral ports were placed under direct vision. Approximately 10 mL of concentrated bile were aspirated from the gallbladder to try and facilitate grasping. We were able to grasp the fundus and retract the gallbladder superolaterally. With careful blunt and cautery dissection, we exposed the gallbladder by peeling back the omental adhesions down to the neck of the gallbladder, taking care to avoid injury to the adjacent bowel. The cystic duct and cystic artery were identified. The duct was clipped on the gallbladder side. Cholangiograms were made. These were normal. In light of this, the catheter was removed and the cystic duct was clipped x 3 and divided, taking care to avoid injury or compromise of the common duct. The cystic artery was clipped and divided and the gallbladder was freed from the bed with cautery dissection. Posterior vessels were clipped or cauterized as needed. Gallbladder placed in an EndoCatch bag. Hemostasis in the fossa obtained with cautery and a small piece of Surgicel. A 19-L[place]ian round Ramakrishna drain was brought through the epigastric port out the lateral port, sewn to the skin with a silk stitch and left in the subhepatic space for postoperative drainage. Table returned to level. Gallbladder delivered through the epigastric incision. Epigastric incision closed with interrupted 0 Vicryl suture. Intra-abdominal pressure decreased to 6 cm of water. No bleeding from the epigastric closure or from the midclavicular or drain sites. Abdomen decompressed, camera slowly removed, no bleeding seen. Skin incisions closed with subcuticular 4-0 Monocryl. Steri-Strips and sterile dressings applied. The patient was awakened from her anesthetic and taken to the recovery room in satisfactory condition. MARK MARCOS MD DR: WILLIS/sandy JOB#: [id number] / [id number]
[2017-04-29] MEDS ORDERED: diphenhydrAMINE 50 MG/ML VIAL IV PRN (16:45)
[2017-04-29] MEDS ORDERED: DEXTROSE 50% 25 GM / 50ML DISP.SYRIN. IV PRN (16:45)
[2017-04-29] MEDS ORDERED: diphenhydrAMINE HCL 25 MG CAPSULE PO PRN (16:45)
[2017-04-29] MEDS ORDERED: 0.9 % SODIUM CHLORIDE 10 ML DISP.SYRIN. IV PRN (16:45)
[2017-04-29] MEDS: POTASSIUM CL 20MEQ-0.45% NACL 1,000 ML IV SCH (17:41)
[2017-04-29] MEDS: oxyCODONE/APAP 5/325 1 TAB TABLET PO PRN (20:46)
[2017-04-29] MEDS: DOCUSATE SODIUM 100 MG CAPSULE. PO SCH (20:46)
[2017-04-29] MEDS: LACTOBACILLUS RHAMNOSUS GG 1 CAPSULE. PO SCH (20:46)
[2017-04-29] MEDS: ONDANSETRON PF 4 MG/2 ML VIAL. IV PRN (22:54)
[2017-04-30] MEDS: PIPERACILLIN/TAZO IV Push 3.375 GM VIAL. IVP SCH ×4 (00:40→17:57)
[2017-04-30] MEDS: oxyCODONE/APAP 5/325 1 TAB TABLET PO PRN ×4 (01:19→21:55)
[2017-04-30 03:00] VITALS: BP 122/86
[2017-04-30] MEDS: POTASSIUM CL 20MEQ-0.45% NACL 1,000 ML IV SCH ×2 (03:07→12:47)
[2017-04-30 05:52] LABS: CALCIUM 8.4 mg/dL (8.5-10.1); CREATININE 0.6 mg/dL (0.6-1.0); GFR 105.4; POTASSIUM 3.3 mmol/L (3.5-5.1)
[2017-04-30] MEDS: ONDANSETRON PF 4 MG/2 ML VIAL. IV PRN ×3 (06:10→21:55)
[2017-04-30 07:00] VITALS: BP 129/81
[2017-04-30] MEDS: DOCUSATE SODIUM 100 MG CAPSULE. PO SCH ×2 (08:13→21:55)
[2017-04-30] MEDS: oxyCODONE IR 5 MG TABLET PO PRN (08:13)
[2017-04-30] MEDS: LACTOBACILLUS RHAMNOSUS GG 1 CAPSULE. PO SCH ×2 (08:13→21:55)
[2017-04-30] MEDS: ENOXAPARIN 40 MG/0.4 ML SYRINGE. SQ SCH (08:14)
--- NOTE | 2017-04-30 10:16 | PDOC ---
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 CARPET TILE LAYER 04/30/17 1016: SURGICAL PROGRESS NOTE Subjective nausea, small amount of emesis this AM pain RUQ Vital Signs Vital Signs Date Time Temp Pulse Resp B/P (MAP) Pulse Ox O2 Delivery O2 Flow Rate FiO2 04/30/17 08:13 Room Air 04/30/17 07:00 98.4 76 18 129/81 (97) 97 98.4 04/30/17 06:11 2.0 I&O Intake and Output 04/30/17 07:00 Intake Total 5443 ml Output Total 45 ml Balance 5398 ml Intake Oral 440 ml IV Total 3772 ml Other 1231 ml Drainage Total 20 ml Estimated Blood Loss 25 ml # Voids 8 General: Alert, Oriented X3, Cooperative, No acute distress Abdomen: Soft, Other (drain serosang, lap dressings dry ) Labs Laboratory Tests Test 04/28/17 16:30 04/29/17 03:40 04/30/17 04:05 White Blood Count 11.5 x10^3/uL (4.0-11.0) 14.9 x10^3/uL (4.0-11.0) Red Blood Count 4.67 x10^6/uL (3.50-5.40) 4.75 x10^6/uL (3.50-5.40) Hemoglobin 10.7 g/dL (12.0-15.5) 10.9 g/dL (12.0-15.5) Hematocrit 33.0 % (36.0-47.0) 34.0 % (36.0-47.0) Mean Corpuscular Volume 71 fL (79-100) 72 fL (79-100) Mean Corpuscular Hemoglobin 23 pg (25-35) 23 pg (25-35) Mean Corpuscular Hemoglobin Concent 32 g/dL (31-37) 32 g/dL (31-37) Red Cell Distribution Width 16.6 % (11.5-14.5) 16.5 % (11.5-14.5) Platelet Count 248 x10^3/uL (140-400) 237 x10^3/uL (140-400) Neutrophils (%) (Auto) 83 % (31-73) 93 % (31-73) Lymphocytes (%) (Auto) 10 % (24-48) 5 % (24-48) Monocytes (%) (Auto) 6 % (0-9) 3 % (0-9) Eosinophils (%) (Auto) 1 % (0-3) 0 % (0-3) Basophils (%) (Auto) 0 % (0-3) 0 % (0-3) Neutrophils # (Auto) 9.6 x10^3uL (1.8-7.7) 13.8 x10^3uL (1.8-7.7) Lymphocytes # (Auto) 1.1 x10^3/uL (1.0-4.8) 0.7 x10^3/uL (1.0-4.8) Monocytes # (Auto) 0.6 x10^3/uL (0.0-1.1) 0.4 x10^3/uL (0.0-1.1) Eosinophils # (Auto) 0.1 x10^3/uL (0.0-0.7) 0.0 x10^3/uL (0.0-0.7) Basophils # (Auto) 0.1 x10^3/uL (0.0-0.2) 0.0 x10^3/uL (0.0-0.2) Platelet Estimate Adequate (ADEQUATE) Hypochromasia Mod Anisocytosis Slight Microcytosis Mod Ovalocytes Occ Prothrombin Time 13.2 SEC (11.7-14.0) Prothromb Time International Ratio 1.1 (0.8-1.1) Urine Collection Type Unknown Urine Color Straw Urine Clarity Clear Urine pH 5.5 Urine Specific [place] 1.010 Urine Protein Negative mg/dL (NEG-TRACE) Urine Glucose (UA) Negative mg/dL (NEG) Urine Ketones (Stick) Negative mg/dL (NEG) Urine Blood Negative (NEG) Urine Nitrite Negative (NEG) Urine Bilirubin Negative (NEG) Urine Urobilinogen Dipstick 0.2 mg/dL (0.2 mg/dL) Urine Leukocyte Esterase Negative (NEG) Urine RBC 0 /HPF (0-2) Urine WBC Rare /HPF (0-4) Urine Squamous Epithelial Cells Mod /LPF Urine Bacteria Moderate /HPF (0-FEW) Urine Mucus Slight /LPF Sodium Level 139 mmol/L (136-145) 137 mmol/L (136-145) 138 mmol/L (136-145) Potassium Level 3.3 mmol/L (3.5-5.1) 3.1 mmol/L (3.5-5.1) 3.3 mmol/L (3.5-5.1) Chloride Level 105 mmol/L (98-107) 102 mmol/L (98-107) 104 mmol/L (98-107) Carbon Dioxide Level 25 mmol/L (21-32) 25 mmol/L (21-32) 25 mmol/L (21-32) Anion Gap 9 (6-14) 10 (6-14) 9 (6-14) Blood Urea Nitrogen 12 mg/dL (7-20) 10 mg/dL (7-20) 10 mg/dL (7-20) Creatinine 0.6 mg/dL (0.6-1.0) 0.6 mg/dL (0.6-1.0) 0.6 mg/dL (0.6-1.0) Estimated GFR (Cockcroft-Gault) 105.4 105.4 105.4 Glucose Level 136 mg/dL (70-99) 193 mg/dL (70-99) 205 mg/dL (70-99) Calcium Level 9.0 mg/dL (8.5-10.1) 8.6 mg/dL (8.5-10.1) 8.4 mg/dL (8.5-10.1) Magnesium Level 1.6 mg/dL (1.8-2.4) Iron Level 16 ug/dL (50-170) Total Iron Binding Capacity 416 ug/dL (250-450) Iron Saturation 4 % (15-34) Ferritin 19 ng/mL (8-252) Total Bilirubin 0.3 mg/dL (0.2-1.0) Direct Bilirubin < 0.1 mg/dL (0.0-0.2) Aspartate Amino Transf (AST/SGOT) 8 U/L (15-37) Alanine Aminotransferase (ALT/SGPT) 15 U/L (14-59) Alkaline Phosphatase 83 U/L (46-116) Creatine Kinase 62 U/L (26-192) Creatine Kinase MB (Mass) < 0.5 ng/mL (0.0-3.6) Creatine Kinase MB Relative Index 0.8 % (0-4) Troponin I Quantitative < 0.017 ng/mL (0.000-0.055) [id number]-[id number]-Type Natriuretic Peptide 205 pg/mL (0-124) Total Protein 7.8 g/dL (6.4-8.2) Albumin 3.9 g/dL (3.4-5.0) Lipase 105 U/L (73-393) Urine Opiates Screen Neg (NEG) Urine Methadone Screen Neg (NEG) Urine Barbiturates Neg (NEG) Urine Phencyclidine Screen Neg (NEG) Urine Amphetamine/Methamphetamine Neg (NEG) Urine Benzodiazepines Screen Neg (NEG) Urine Cocaine Screen Neg (NEG) Urine Cannabinoids Screen Neg (NEG) Urine Ethyl Alcohol Neg (NEG) Laboratory Tests Test 04/30/17 04:05 Sodium Level 138 mmol/L (136-145) Potassium Level 3.3 mmol/L (3.5-5.1) Chloride Level 104 mmol/L (98-107) Carbon Dioxide Level 25 mmol/L (21-32) Anion Gap 9 (6-14) Blood Urea Nitrogen 10 mg/dL (7-20) Creatinine 0.6 mg/dL (0.6-1.0) Estimated GFR (Cockcroft-Gault) 105.4 Glucose Level 205 mg/dL (70-99) Calcium Level 8.4 mg/dL (8.5-10.1) Problem List Problems Medical Problems: (1) Acute cholecystitis Status: Acute Assessment/Plan s/p lap joseph continue clears, antiemetics, NPO if further emesis Problems: RITO MARCOS MD 04/30/17 1708: SURGICAL PROGRESS NOTE Assessment/Plan pt seen and examined c/o headache will Rx Problems: EFRA PAGE CARPET TILE LAYER Apr 30, 2017 10:16 RITO MARCOS MD Apr 30, 2017 17:08
[2017-04-30 11:00] VITALS: BP 116/74
--- NOTE | 2017-04-30 13:35 | PDOC ---
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 Vitals Vitals Vital Signs Date Time Temp Pulse Resp B/P (MAP) Pulse Ox O2 Delivery O2 Flow Rate FiO2 04/30/17 12:51 Room Air 04/30/17 11:00 98.4 74 18 116/74 (88) 93 98.4 04/30/17 06:11 2.0 Physical Exam General: Alert, Oriented X3, Cooperative, mild distress Heart: Regular rate, Normal S1, Normal S2, No murmurs, Gallops Lungs: Clear, Other (No wheezes , rhonchi, rales) Abdomen: Soft, Other (drain serosang, lap dressings dry ) Extremities: No clubbing, No cyanosis Skin: No rashes, No breakdown Labs LABS Laboratory Tests Test 04/30/17 04:05 Sodium Level 138 mmol/L (136-145) Potassium Level 3.3 mmol/L (3.5-5.1) Chloride Level 104 mmol/L (98-107) Carbon Dioxide Level 25 mmol/L (21-32) Anion Gap 9 (6-14) Blood Urea Nitrogen 10 mg/dL (7-20) Creatinine 0.6 mg/dL (0.6-1.0) Estimated GFR (Cockcroft-Gault) 105.4 Glucose Level 205 mg/dL (70-99) Calcium Level 8.4 mg/dL (8.5-10.1) Review of Systems Review of Systems General: No Fever, Chills GI: Admits Nausea, Abd pain Assessment and Plan Assessmemt and Plan Problems Medical Problems: (1) Acute cholecystitis Status: Acute Plan: Continue Antiemetics PRN Continue Wound Care Continue Potassium Replenishment and Monitoring Continue Home Meds Hope to Advance Diet Await further Surgical Input Recheck Labs PT/OT Problems: Comment Review of Relevant I have reviewed the following items tana (where applicable) has been applied. Labs Laboratory Tests Test 04/28/17 16:30 04/29/17 03:40 04/30/17 04:05 White Blood Count 11.5 x10^3/uL (4.0-11.0) 14.9 x10^3/uL (4.0-11.0) Red Blood Count 4.67 x10^6/uL (3.50-5.40) 4.75 x10^6/uL (3.50-5.40) Hemoglobin 10.7 g/dL (12.0-15.5) 10.9 g/dL (12.0-15.5) Hematocrit 33.0 % (36.0-47.0) 34.0 % (36.0-47.0) Mean Corpuscular Volume 71 fL (79-100) 72 fL (79-100) Mean Corpuscular Hemoglobin 23 pg (25-35) 23 pg (25-35) Mean Corpuscular Hemoglobin Concent 32 g/dL (31-37) 32 g/dL (31-37) Red Cell Distribution Width 16.6 % (11.5-14.5) 16.5 % (11.5-14.5) Platelet Count 248 x10^3/uL (140-400) 237 x10^3/uL (140-400) Neutrophils (%) (Auto) 83 % (31-73) 93 % (31-73) Lymphocytes (%) (Auto) 10 % (24-48) 5 % (24-48) Monocytes (%) (Auto) 6 % (0-9) 3 % (0-9) Eosinophils (%) (Auto) 1 % (0-3) 0 % (0-3) Basophils (%) (Auto) 0 % (0-3) 0 % (0-3) Neutrophils # (Auto) 9.6 x10^3uL (1.8-7.7) 13.8 x10^3uL (1.8-7.7) Lymphocytes # (Auto) 1.1 x10^3/uL (1.0-4.8) 0.7 x10^3/uL (1.0-4.8) Monocytes # (Auto) 0.6 x10^3/uL (0.0-1.1) 0.4 x10^3/uL (0.0-1.1) Eosinophils # (Auto) 0.1 x10^3/uL (0.0-0.7) 0.0 x10^3/uL (0.0-0.7) Basophils # (Auto) 0.1 x10^3/uL (0.0-0.2) 0.0 x10^3/uL (0.0-0.2) Platelet Estimate Adequate (ADEQUATE) Hypochromasia Mod Anisocytosis Slight Microcytosis Mod Ovalocytes Occ Prothrombin Time 13.2 SEC (11.7-14.0) Prothromb Time International Ratio 1.1 (0.8-1.1) Urine Collection Type Unknown Urine Color Straw Urine Clarity Clear Urine pH 5.5 Urine Specific [place] 1.010 Urine Protein Negative mg/dL (NEG-TRACE) Urine Glucose (UA) Negative mg/dL (NEG) Urine Ketones (Stick) Negative mg/dL (NEG) Urine Blood Negative (NEG) Urine Nitrite Negative (NEG) Urine Bilirubin Negative (NEG) Urine Urobilinogen Dipstick 0.2 mg/dL (0.2 mg/dL) Urine Leukocyte Esterase Negative (NEG) Urine RBC 0 /HPF (0-2) Urine WBC Rare /HPF (0-4) Urine Squamous Epithelial Cells Mod /LPF Urine Bacteria Moderate /HPF (0-FEW) Urine Mucus Slight /LPF Sodium Level 139 mmol/L (136-145) 137 mmol/L (136-145) 138 mmol/L (136-145) Potassium Level 3.3 mmol/L (3.5-5.1) 3.1 mmol/L (3.5-5.1) 3.3 mmol/L (3.5-5.1) Chloride Level 105 mmol/L (98-107) 102 mmol/L (98-107) 104 mmol/L (98-107) Carbon Dioxide Level 25 mmol/L (21-32) 25 mmol/L (21-32) 25 mmol/L (21-32) Anion Gap 9 (6-14) 10 (6-14) 9 (6-14) Blood Urea Nitrogen 12 mg/dL (7-20) 10 mg/dL (7-20) 10 mg/dL (7-20) Creatinine 0.6 mg/dL (0.6-1.0) 0.6 mg/dL (0.6-1.0) 0.6 mg/dL (0.6-1.0) Estimated GFR (Cockcroft-Gault) 105.4 105.4 105.4 Glucose Level 136 mg/dL (70-99) 193 mg/dL (70-99) 205 mg/dL (70-99) Calcium Level 9.0 mg/dL (8.5-10.1) 8.6 mg/dL (8.5-10.1) 8.4 mg/dL (8.5-10.1) Magnesium Level 1.6 mg/dL (1.8-2.4) Iron Level 16 ug/dL (50-170) Total Iron Binding Capacity 416 ug/dL (250-450) Iron Saturation 4 % (15-34) Ferritin 19 ng/mL (8-252) Total Bilirubin 0.3 mg/dL (0.2-1.0) Direct Bilirubin < 0.1 mg/dL (0.0-0.2) Aspartate Amino Transf (AST/SGOT) 8 U/L (15-37) Alanine Aminotransferase (ALT/SGPT) 15 U/L (14-59) Alkaline Phosphatase 83 U/L (46-116) Creatine Kinase 62 U/L (26-192) Creatine Kinase MB (Mass) < 0.5 ng/mL (0.0-3.6) Creatine Kinase MB Relative Index 0.8 % (0-4) Troponin I Quantitative < 0.017 ng/mL (0.000-0.055) [id number]-Type Natriuretic Peptide 205 pg/mL (0-124) Total Protein 7.8 g/dL (6.4-8.2) Albumin 3.9 g/dL (3.4-5.0) Lipase 105 U/L (73-393) Urine Opiates Screen Neg (NEG) Urine Methadone Screen Neg (NEG) Urine Barbiturates Neg (NEG) Urine Phencyclidine Screen Neg (NEG) Urine Amphetamine/Methamphetamine Neg (NEG) Urine Benzodiazepines Screen Neg (NEG) Urine Cocaine Screen Neg (NEG) Urine Cannabinoids Screen Neg (NEG) Urine Ethyl Alcohol Neg (NEG) Laboratory Tests Test 04/30/17 04:05 Sodium Level 138 mmol/L (136-145) Potassium Level 3.3 mmol/L (3.5-5.1) Chloride Level 104 mmol/L (98-107) Carbon Dioxide Level 25 mmol/L (21-32) Anion Gap 9 (6-14) Blood Urea Nitrogen 10 mg/dL (7-20) Creatinine 0.6 mg/dL (0.6-1.0) Estimated GFR (Cockcroft-Gault) 105.4 Glucose Level 205 mg/dL (70-99) Calcium Level 8.4 mg/dL (8.5-10.1) Medications Current Medications Morphine Sulfate 2 mg PRN Q15MIN PRN IV/SQ PAIN GREATER THAN 3/10 Last administered on 04/28/17 16:50; Start 04/28/17 at 16:30; Stop 04/28/17 at 20 :41; Status DC Sodium Chloride 1,000 ml @ 1,000 mls/hr Q1H IV Last administered on 16:46; Start 04/28/17 at 16:22; Stop 04/28/17 at 17:21; Status DC Ondansetron HCl (Zofran) 4 mg 1X ONCE IV Last administered on 04/28/17 16:50 ; Start 04/28/17 at 17:15; Stop 04/28/17 at 17:16; Status DC Ondansetron HCl (Zofran) 4 mg STK-MED ONCE .ROUTE ; Start 04/28/17 at 16:48; Stop 04/28/17 at 16:49; Status DC Iohexol (Omnipaque 300 Mg/ml) 75 ml 1X ONCE IV Last administered on 17:30; Start 04/28/17 at 17:00; Stop 04/28/17 at 17:02; Status DC Info (Do NOT chart on this entry -- for MONITORING) 1 each PRN DAILY PRN MC SEE COMMENTS; Start 04/28/17 at 17:15; Stop 04/30/17 at 17:14 Piperacillin Sod/ Tazobactam Sod (Zosyn Per Pharmacy) 1 each PRN DAILY PRN MC SEE COMMENTS; Start 04/28/17 at 19:00 Piperacillin Sod/ Tazobactam Sod (Zosyn) 3.375 gm ONCE ONCE IVP Last administered on 04/28/17 19:23; Start 04/28/17 at 19:00; Stop 04/28/17 at 19 :01; Status DC Ondansetron HCl (Zofran) 4 mg PRN Q8HRS PRN IV NAUSEA/VOMITING Last administered on 04/28/17 23:20; Start 04/28/17 at 19:00; Stop 04/29/17 at 18 :59; Status DC Morphine Sulfate 2 mg PRN Q2HR PRN IV PAIN; Start 04/28/17 at 19:00; Stop at 20:42; Status DC Dextrose/Sodium Chloride 1,000 ml @ 75 mls/hr 1X ONCE IV Last administered on 04/28/17 20:54; Start 04/28/17 at 19:15; Stop 04/29/17 at 08:34; Status DC Piperacillin Sod/ Tazobactam Sod (Zosyn) 3.375 gm Q6HRS IVP Last administered on 04/30/17 12:47; Start 04/29/17 at 00:00 Morphine Sulfate 2 mg PRN Q15MIN PRN IV/SQ PAIN GREATER THAN 3/10; Start 04/28 at 20:45; Stop 04/28/17 at 21:16; Status DC Morphine Sulfate 2 mg PRN Q2HR PRN IV PAIN Last administered on 04/29/17 11: 13; Start 04/28/17 at 20:42; Stop 04/29/17 at 18:59; Status DC Potassium Chloride 50 ml @ 50 mls/hr 1X ONCE IV ; Start 04/29/17 at 08:15; Stop 04/29/17 at 09:14; Status UNV Ondansetron HCl (Zofran) 4 mg PRN Q6HRS PRN IV NAUSEA/VOMITING; Start at 08:15; Stop 04/29/17 at 19:00; Status DC Fentanyl Citrate (Fentanyl 2ml Vial) 25 mcg PRN Q5MIN PRN IV MILD PAIN; Start 04/29/17 at 08:15; Stop 04/29/17 at 19:00; Status DC Fentanyl Citrate (Fentanyl 2ml Vial) 50 mcg PRN Q5MIN PRN IV MODERATE PAIN; Start 04/29/17 at 08:15; Stop 04/29/17 at 19:00; Status DC Morphine Sulfate 1 mg PRN Q10MIN PRN IV SEVERE PAIN Last administered on 16:36; Start 04/29/17 at 08:15; Stop 04/29/17 at 19:00; Status DC Ringer's Solution 1,000 ml @ 30 mls/hr Q24H IV Last administered on 11/20/ 17at 13:50; Start 04/29/17 at 08:09; Stop 04/29/17 at 20:08; Status DC Lidocaine HCl (Xylocaine-Mpf 1% Vial) 2 ml 1X PRN PRN ID IV START; Start 04/29 at 08:15; Stop 04/29/17 at 19:00; Status DC Hydromorphone HCl (Dilaudid) 0.5 mg PRN Q10MIN PRN IV SEV PAIN, Second choice; Start 04/29/17 at 08:15; Stop 04/29/17 at 19:00; Status DC Prochlorperazine Edisylate (Compazine) 5 mg PACU PRN PRN IV NAUSEA, MRX1; Start 04/29/17 at 08:15; Stop 04/29/17 at 19:00; Status DC Potassium Chloride 10 meq/ Sodium Chloride 105 ml @ 105 mls/hr Q1H IV Last administered on 04/29/17t 11:13; Start 04/29/17 at 08:30; Stop 04/29/17 at 10 :29; Status DC Dexamethasone Sodium Phosphate (Decadron) 20 mg STK-MED ONCE .ROUTE ; Start at 12:41; Stop 04/29/17 at 12:42; Status DC Ondansetron HCl (Zofran) 4 mg STK-MED ONCE .ROUTE ; Start 04/29/17 at 12:41; Stop 04/29/17 at 12:42; Status DC Propofol 0 ml @ As Directed STK-MED ONCE IV ; Start 04/29/17 at 12:41; Stop at 12:42; Status DC Lidocaine HCl (Lidocaine Pf 2% Vial) 5 ml STK-MED ONCE .ROUTE ; Start 04/29/17 at 12:41; Stop 04/29/17 at 12:42; Status DC Rocuronium [place] (Zemuron) 50 mg STK-MED ONCE .ROUTE ; Start 04/29/17 at 12: 41; Stop 04/29/17 at 12:42; Status DC Bupivacaine HCl/ Epinephrine Bitart (Sensorcain-Mpf Epi 0.5%-1:718813) 30 ml STK -MED ONCE .ROUTE ; Start 04/29/17 at 13:16; Stop 04/29/17 at 13:17; Status DC Glucagon (Glucagen) 1 mg STK-MED ONCE .ROUTE ; Start 04/29/17 at 13:16; Stop 04/29/17 at 13:17; Status DC Iohexol (Omnipaque 300 Mg/ml) 100 ml STK-MED ONCE .ROUTE ; Start 04/29/17 at 13 :16; Stop 04/29/17 at 13:17; Status DC Cellulose 1 each STK-MED ONCE .ROUTE ; Start 04/29/17 at 13:16; Stop 04/29/17 at 13:17; Status DC Glucagon (Glucagen) 1 mg STK-MED ONCE .ROUTE ; Start 04/29/17 at 13:20; Stop 04/29/17 at 13:21; Status DC Bupivacaine HCl/ Epinephrine Bitart (Sensorcain-Mpf Epi 0.5%-1:635124) 30 ml STK -MED ONCE .ROUTE ; Start 04/29/17 at 13:25; Stop 04/29/17 at 13:26; Status DC Fentanyl Citrate (Fentanyl 2ml Vial) 100 mcg STK-MED ONCE .ROUTE ; Start at 13:42; Stop 04/29/17 at 13:43; Status DC Midazolam HCl (Versed) 2 mg STK-MED ONCE .ROUTE ; Start 04/29/17 at 13:42; Stop 04/29/17 at 13:43; Status DC Lactobacillus Rhamnosus (Culturelle) 1 cap BID PO Last administered on t 08:13; Start 04/29/17 at 21:00 Fentanyl Citrate (Fentanyl 2ml Vial) 100 mcg STK-MED ONCE .ROUTE ; Start at 14:22; Stop 04/29/17 at 14:23; Status DC Dexamethasone Sodium Phosphate (Decadron) 20 mg STK-MED ONCE .ROUTE ; Start at 14:22; Stop 04/29/17 at 14:23; Status DC Famotidine (Pepcid Vial) 20 mg STK-MED ONCE .ROUTE ; Start 04/29/17 at 14:22; Stop 04/29/17 at 14:23; Status DC Ondansetron HCl (Zofran) 4 mg STK-MED ONCE .ROUTE ; Start 04/29/17 at 14:22; Stop 04/29/17 at 14:23; Status DC Esmolol HCl (Brevibloc) 100 mg STK-MED ONCE IV ; Start 04/29/17 at 14:30; Stop 04/29/17 at 14:31; Status DC Bupivacaine HCl/ Epinephrine Bitart (Sensorcain-Mpf Epi 0.5%-1:506456) 30 ml STK -MED ONCE INJ Last administered on 04/29/17 14:38; Start 04/29/17 at 14:38; Stop 04/29/17 at 14:49; Status DC Iohexol (Omnipaque 300 Mg/ml) 100 ml STK-MED ONCE IV Last administered on 04/29 14:43; Start 04/29/17 at 14:43; Stop 04/29/17 at 14:49; Status DC Cellulose 1 each STK-MED ONCE TP Last administered on 04/29/17 14:54; Start 04/29/17 at 14:54; Stop 04/29/17 at 14:55; Status DC Propofol 20 ml @ As Directed STK-MED ONCE IV ; Start 04/29/17 at 15:02; Stop 04/29/17 at 15:03; Status DC Propofol 20 ml @ As Directed STK-MED ONCE IV ; Start 04/29/17 at 15:02; Stop 04/29/17 at 15:03; Status DC Neostigmine Methylsulfate (Bloxiverz) 10 mg STK-MED ONCE .ROUTE ; Start at 15:02; Stop 04/29/17 at 15:03; Status DC Glycopyrrolate (Robinul) 1 mg STK-MED ONCE .ROUTE ; Start 04/29/17 at 15:02; Stop 04/29/17 at 15:03; Status DC Fentanyl Citrate (Fentanyl 2ml Vial) 100 mcg STK-MED ONCE .ROUTE ; Start at 15:08; Stop 04/29/17 at 15:09; Status DC Sevoflurane (Ultane) 60 ml STK-MED ONCE IH ; Start 04/29/17 at 15:26; Stop at 15:27; Status DC Morphine Sulfate 2 mg STK-MED ONCE .ROUTE ; Start 04/29/17 at 16:15; Stop at 16:16; Status DC Diphenhydramine HCl (Benadryl) 25 mg PRN Q6HRS PRN PO ITCHING; Start 04/29/17 at 16:45 Diphenhydramine HCl (Benadryl) 25 mg PRN Q6HRS PRN IV ITCHING; Start 04/29/17 at 16:45 Enoxaparin Sodium (Lovenox 40mg Syringe) 40 mg Q24H SQ Last administered on 08:14; Start 04/30/17 at 08:00 Sodium Chloride (Normal Saline Flush) 3 ml QSHIFT PRN IV AFTER MEDS AND BLOOD DRAWS; Start 04/29/17 at 16:45 Potassium Chloride/Sodium Chloride 1,000 ml @ 100 mls/hr Q10H IV Last administered on 04/30/17 12:47; Start 04/29/17 at 16:32 Dextrose (Dextrose 50%-Water Syringe) 12.5 gm PRN Q15MIN PRN IV SEE COMMENTS; Start 04/29/17 at 16:45 Oxycodone/ Acetaminophen (Percocet 5/325) 1 tab PRN Q4HRS PRN PO MILD PAIN, 1ST CHOICE Last administered on 04/30/17 06:11; Start 04/29/17 at 16:45 Oxycodone HCl (Roxicodone) 10 mg PRN Q4HRS PRN PO MODERATE PAIN, SEVERE PAIN Last administered on 04/30/17 08:13; Start 04/29/17 at 16:45 Hydromorphone HCl (Dilaudid) 0.5 mg Q3HRS PRN IV PAIN Last administered on 12:51; Start 04/29/17 at 16:45 Docusate Sodium (Colace) 100 mg BID PO Last administered on 04/30/17 08:13; Start 04/29/17 at 21:00 Ondansetron HCl (Zofran) 4 mg PRN Q6HRS PRN IV NAUESA, 1ST CHOICE Last administered on 04/30/17 12:51; Start 04/29/17 at 16:45 Active Scripts Active Fioricet 50-300-40 Mg Capsule (Butalb/Acetaminophen/Caffeine) 1 Each Capsule 1 Each PO PRN Q4HRS PRN Vitals/I & O Vital Sign - Last 24 Hours 04/29/17 04/29/17 04/29/17 04/29/17 15:40 15:55 16:10 16:17 Temp 97.5 97.5 Pulse 71 75 75 Resp 20 20 20 20 B/P (MAP) 92/57 117/65 118/73 Pulse Ox 100 100 96 O2 Delivery Simple Mask Simple Mask Nasal Cannula Room Air O2 Flow Rate 10 10 2 04/29/17 04/29/17 04/29/17 04/29/17 16:27 16:36 16:42 17:15 Temp 98.0 97.5 98.8 98.0 97.5 98.8 Pulse 78 78 76 Resp 20 20 20 18 B/P (MAP) 119/73 119/73 135/86 (102) Pulse Ox 95 100 96 91 O2 Delivery Nasal Cannula Nasal Cannula Nasal Cannula Nasal Cannula O2 Flow Rate 2 2.0 2.0 04/29/17 04/29/17 04/29/17 04/29/17 17:25 17:30 17:45 18:00 Pulse 101 75 74 Resp 18 18 18 B/P (MAP) 129/84 (99) 120/77 (91) 123/78 (93) Pulse Ox 97 97 97 O2 Delivery Room Air Nasal Cannula Nasal Cannula Nasal Cannula O2 Flow Rate 2.0 2.0 2.0 04/29/17 04/29/17 04/29/17 04/29/17 18:30 19:55 20:00 20:46 Pulse 69 76 Resp 18 16 B/P (MAP) 114/74 (87) 125/84 (98) Pulse Ox 98 98 O2 Delivery Nasal Cannula Nasal Cannula Nasal Cannula O2 Flow Rate 2.0 2.0 2.0 04/29/17 04/29/17 04/30/17 04/30/17 21:00 23:00 01:19 02:20 Temp 97.5 97.5 97.5 97.5 Pulse 82 Resp 18 18 16 14 B/P (MAP) 117/77 (90) 117/77 (90) Pulse Ox 97 97 97 O2 Delivery Nasal Cannula Nasal Cannula O2 Flow Rate 2.0 2.0 2.0 04/30/17 04/30/17 04/30/17 04/30/17 03:00 06:11 07:00 08:12 Temp 98.8 98.4 98.8 98.4 Pulse 72 76 Resp 18 14 18 B/P (MAP) 122/86 (98) 129/81 (97) Pulse Ox 92 97 O2 Delivery Nasal Cannula Nasal Cannula Room Air Room Air O2 Flow Rate 2.0 2.0 04/30/17 04/30/17 04/30/17 08:13 11:00 12:51 Temp 98.4 98.4 Pulse 74 Resp 18 B/P (MAP) 116/74 (88) Pulse Ox 93 O2 Delivery Room Air Room Air Room Air Intake and Output 04/29/17 04/29/17 04/30/17 15:00 23:00 07:00 Intake Total 255 ml 1850 ml 3338 ml Output Total 25 ml 20 ml Balance 255 ml 1825 ml 3318 ml MUSTAPHA JIMENEZ III DO Apr 30, 2017 13:35
[2017-04-30 15:00] VITALS: BP 123/81
[2017-04-30] MEDS ORDERED: BUTALB/APAP/CAFEIN 50/325/40MG TABLET. PO PRN (17:15)
[2017-04-30 19:15] VITALS: BP 128/80
[2017-04-30 23:00] VITALS: BP 135/85
[2017-05-01] MEDS: PIPERACILLIN/TAZO IV Push 3.375 GM VIAL. IVP SCH ×3 (00:26→13:32)
[2017-05-01] MEDS: oxyCODONE/APAP 5/325 1 TAB TABLET PO PRN ×2 (02:53→13:32)
[2017-05-01 03:00] VITALS: BP 124/81
[2017-05-01] MEDS: POTASSIUM CL 20MEQ-0.45% NACL 1,000 ML IV SCH (03:55)
[2017-05-01 07:00] VITALS: BP 110/71
[2017-05-01] MEDS: DOCUSATE SODIUM 100 MG CAPSULE. PO SCH (08:35)
[2017-05-01] MEDS: LACTOBACILLUS RHAMNOSUS GG 1 CAPSULE. PO SCH (08:35)
[2017-05-01] MEDS: ENOXAPARIN 40 MG/0.4 ML SYRINGE. SQ SCH (08:35)
[2017-05-01] MEDS: oxyCODONE IR 5 MG TABLET PO PRN (08:36)
--- NOTE | 2017-05-01 10:13 | PDOC ---
SURGICAL PROGRESS NOTE Subjective family at bedside translates headache a little better taking diet, would like more to eat (had rice from home last noc) Vital Signs Vital Signs Date Time Temp Pulse Resp B/P (MAP) Pulse Ox O2 Delivery O2 Flow Rate FiO2 05/01/17 08:36 95 Room Air 2.0 05/01/17 07:00 98.2 71 18 110/71 (84) 98.2 I&O Intake and Output 05/01/17 07:00 Intake Total 4878 ml Output Total 120 ml Balance 4758 ml Intake Oral 2730 ml IV Total 1668 ml Other 480 ml Output Emesis 50 ml Drainage Total 70 ml # Voids 5 PATIENT HAS A DIETZ: No General: Cooperative, No acute distress Abdomen: Soft, Other (small amount of serosanguineous output in CELESTINA drain ) Labs Laboratory Tests Test 04/30/17 04:05 Sodium Level 138 mmol/L (136-145) Potassium Level 3.3 mmol/L (3.5-5.1) Chloride Level 104 mmol/L (98-107) Carbon Dioxide Level 25 mmol/L (21-32) Anion Gap 9 (6-14) Blood Urea Nitrogen 10 mg/dL (7-20) Creatinine 0.6 mg/dL (0.6-1.0) Estimated GFR (Cockcroft-Gault) 105.4 Glucose Level 205 mg/dL (70-99) Calcium Level 8.4 mg/dL (8.5-10.1) Problem List Problems Medical Problems: (1) Acute cholecystitis Status: Acute Assessment/Plan s/p l/s joseph drain out before discharge advance diet Problems: RITO MARCOS MD May 01, 2017 10:13
[2017-05-01 11:00] VITALS: BP 118/78
--- NOTE | 2017-05-01 15:36 | PDOC ---
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 Vitals Vital Signs Date Time Temp Pulse Resp B/P (MAP) Pulse Ox O2 Delivery O2 Flow Rate FiO2 05/01/17 14:38 Room Air 2.0 05/01/17 14:37 97 05/01/17 11:00 98.1 70 18 118/78 (91) 98.1 Physical Exam General: Alert, Cooperative, No acute distress Heart: Regular rate, Normal S1, Normal S2, No murmurs, Gallops Lungs: Clear, Other (No wheezes , rhonchi, rales) Abdomen: Soft, Other Extremities: No clubbing, No cyanosis Skin: No rashes, No breakdown Review of Systems Review of Systems General: Denies Fever, Chills, CV: Denies Chest Pain, Palpitations Assessment and Plan Assessmemt and Plan Problems Medical Problems: (1) Acute cholecystitis Status: Acute Assessment: Probable DC if agreeable with Surgery Continue Wound Care Continue Home Meds Continue PT/OT Recheck Labs Problems: Comment Review of Relevant I have reviewed the following items tana (where applicable) has been applied. Labs Laboratory Tests Test 04/30/17 04:05 Sodium Level 138 mmol/L (136-145) Potassium Level 3.3 mmol/L (3.5-5.1) Chloride Level 104 mmol/L (98-107) Carbon Dioxide Level 25 mmol/L (21-32) Anion Gap 9 (6-14) Blood Urea Nitrogen 10 mg/dL (7-20) Creatinine 0.6 mg/dL (0.6-1.0) Estimated GFR (Cockcroft-Gault) 105.4 Glucose Level 205 mg/dL (70-99) Calcium Level 8.4 mg/dL (8.5-10.1) Microbiology 04/28/17 Urine Culture - Final, Complete 04/28/17 Urine Culture Result 1 (JIMMIE) - Final, Complete Medications Current Medications Morphine Sulfate 2 mg PRN Q15MIN PRN IV/SQ PAIN GREATER THAN 3/10 Last administered on 04/28/17t 16:50; Start 04/28/17 at 16:30; Stop 04/28/17 at 20 :41; Status DC Sodium Chloride 1,000 ml @ 1,000 mls/hr Q1H IV Last administered on 16:46; Start 04/28/17 at 16:22; Stop 04/28/17 at 17:21; Status DC Ondansetron HCl (Zofran) 4 mg 1X ONCE IV Last administered on 04/28/17 16:50 ; Start 04/28/17 at 17:15; Stop 04/28/17 at 17:16; Status DC Ondansetron HCl (Zofran) 4 mg STK-MED ONCE .ROUTE ; Start 04/28/17 at 16:48; Stop 04/28/17 at 16:49; Status DC Iohexol (Omnipaque 300 Mg/ml) 75 ml 1X ONCE IV Last administered on 17:30; Start 04/28/17 at 17:00; Stop 04/28/17 at 17:02; Status DC Info (Do NOT chart on this entry -- for MONITORING) 1 each PRN DAILY PRN MC SEE COMMENTS; Start 04/28/17 at 17:15; Stop 04/30/17 at 17:14; Status DC Piperacillin Sod/ Tazobactam Sod (Zosyn Per Pharmacy) 1 each PRN DAILY PRN MC SEE COMMENTS; Start 04/28/17 at 19:00 Piperacillin Sod/ Tazobactam Sod (Zosyn) 3.375 gm ONCE ONCE IVP Last administered on 04/28/17 19:23; Start 04/28/17 at 19:00; Stop 04/28/17 at 19 :01; Status DC Ondansetron HCl (Zofran) 4 mg PRN Q8HRS PRN IV NAUSEA/VOMITING Last administered on 04/28/17 23:20; Start 04/28/17 at 19:00; Stop 04/29/17 at 18 :59; Status DC Morphine Sulfate 2 mg PRN Q2HR PRN IV PAIN; Start 04/28/17 at 19:00; Stop at 20:42; Status DC Dextrose/Sodium Chloride 1,000 ml @ 75 mls/hr 1X ONCE IV Last administered on 04/28/17 20:54; Start 04/28/17 at 19:15; Stop 04/29/17 at 08:34; Status DC Piperacillin Sod/ Tazobactam Sod (Zosyn) 3.375 gm Q6HRS IVP Last administered on 05/01/17 13:32; Start 04/29/17 at 00:00 Morphine Sulfate 2 mg PRN Q15MIN PRN IV/SQ PAIN GREATER THAN 3/10; Start 04/28 at 20:45; Stop 04/28/17 at 21:16; Status DC Morphine Sulfate 2 mg PRN Q2HR PRN IV PAIN Last administered on 04/29/17 11: 13; Start 04/28/17 at 20:42; Stop 04/29/17 at 18:59; Status DC Potassium Chloride 50 ml @ 50 mls/hr 1X ONCE IV ; Start 04/29/17 at 08:15; Stop 04/29/17 at 09:14; Status UNV Ondansetron HCl (Zofran) 4 mg PRN Q6HRS PRN IV NAUSEA/VOMITING; Start at 08:15; Stop 04/29/17 at 19:00; Status DC Fentanyl Citrate (Fentanyl 2ml Vial) 25 mcg PRN Q5MIN PRN IV MILD PAIN; Start 04/29/17 at 08:15; Stop 04/29/17 at 19:00; Status DC Fentanyl Citrate (Fentanyl 2ml Vial) 50 mcg PRN Q5MIN PRN IV MODERATE PAIN; Start 04/29/17 at 08:15; Stop 04/29/17 at 19:00; Status DC Morphine Sulfate 1 mg PRN Q10MIN PRN IV SEVERE PAIN Last administered on 16:36; Start 04/29/17 at 08:15; Stop 04/29/17 at 19:00; Status DC Ringer's Solution 1,000 ml @ 30 mls/hr Q24H IV Last administered on 13:50; Start 04/29/17 at 08:09; Stop 04/29/17 at 20:08; Status DC Lidocaine HCl (Xylocaine-Mpf 1% Vial) 2 ml 1X PRN PRN ID IV START; Start 04/29 at 08:15; Stop 04/29/17 at 19:00; Status DC Hydromorphone HCl (Dilaudid) 0.5 mg PRN Q10MIN PRN IV SEV PAIN, Second choice; Start 04/29/17 at 08:15; Stop 04/29/17 at 19:00; Status DC Prochlorperazine Edisylate (Compazine) 5 mg PACU PRN PRN IV NAUSEA, MRX1; Start 04/29/17 at 08:15; Stop 04/29/17 at 19:00; Status DC Potassium Chloride 10 meq/ Sodium Chloride 105 ml @ 105 mls/hr Q1H IV Last administered on 04/29/17t 11:13; Start 04/29/17 at 08:30; Stop 04/29/17 at 10 :29; Status DC Dexamethasone Sodium Phosphate (Decadron) 20 mg STK-MED ONCE .ROUTE ; Start at 12:41; Stop 04/29/17 at 12:42; Status DC Ondansetron HCl (Zofran) 4 mg STK-MED ONCE .ROUTE ; Start 04/29/17 at 12:41; Stop 04/29/17 at 12:42; Status DC Propofol 0 ml @ As Directed STK-MED ONCE IV ; Start 04/29/17 at 12:41; Stop at 12:42; Status DC Lidocaine HCl (Lidocaine Pf 2% Vial) 5 ml STK-MED ONCE .ROUTE ; Start 04/29/17 at 12:41; Stop 04/29/17 at 12:42; Status DC Rocuronium [place] (Zemuron) 50 mg STK-MED ONCE .ROUTE ; Start 04/29/17 at 12: 41; Stop 04/29/17 at 12:42; Status DC Bupivacaine HCl/ Epinephrine Bitart (Sensorcain-Mpf Epi 0.5%-1:675268) 30 ml STK -MED ONCE .ROUTE ; Start 04/29/17 at 13:16; Stop 04/29/17 at 13:17; Status DC Glucagon (Glucagen) 1 mg STK-MED ONCE .ROUTE ; Start 04/29/17 at 13:16; Stop 04/29/17 at 13:17; Status DC Iohexol (Omnipaque 300 Mg/ml) 100 ml STK-MED ONCE .ROUTE ; Start 04/29/17 at 13 :16; Stop 04/29/17 at 13:17; Status DC Cellulose 1 each STK-MED ONCE .ROUTE ; Start 04/29/17 at 13:16; Stop 04/29/17 at 13:17; Status DC Glucagon (Glucagen) 1 mg STK-MED ONCE .ROUTE ; Start 04/29/17 at 13:20; Stop 04/29/17 at 13:21; Status DC Bupivacaine HCl/ Epinephrine Bitart (Sensorcain-Mpf Epi 0.5%-1:075963) 30 ml STK -MED ONCE .ROUTE ; Start 04/29/17 at 13:25; Stop 04/29/17 at 13:26; Status DC Fentanyl Citrate (Fentanyl 2ml Vial) 100 mcg STK-MED ONCE .ROUTE ; Start at 13:42; Stop 04/29/17 at 13:43; Status DC Midazolam HCl (Versed) 2 mg STK-MED ONCE .ROUTE ; Start 04/29/17 at 13:42; Stop 04/29/17 at 13:43; Status DC Lactobacillus Rhamnosus (Culturelle) 1 cap BID PO Last administered on t 08:35; Start 04/29/17 at 21:00 Fentanyl Citrate (Fentanyl 2ml Vial) 100 mcg STK-MED ONCE .ROUTE ; Start at 14:22; Stop 04/29/17 at 14:23; Status DC Dexamethasone Sodium Phosphate (Decadron) 20 mg STK-MED ONCE .ROUTE ; Start at 14:22; Stop 04/29/17 at 14:23; Status DC Famotidine (Pepcid Vial) 20 mg STK-MED ONCE .ROUTE ; Start 04/29/17 at 14:22; Stop 04/29/17 at 14:23; Status DC Ondansetron HCl (Zofran) 4 mg STK-MED ONCE .ROUTE ; Start 04/29/17 at 14:22; Stop 04/29/17 at 14:23; Status DC Esmolol HCl (Brevibloc) 100 mg STK-MED ONCE IV ; Start 04/29/17 at 14:30; Stop 04/29/17 at 14:31; Status DC Bupivacaine HCl/ Epinephrine Bitart (Sensorcain-Mpf Epi 0.5%-1:049220) 30 ml STK -MED ONCE INJ Last administered on 04/29/17t 14:38; Start 04/29/17 at 14:38; Stop 04/29/17 at 14:49; Status DC Iohexol (Omnipaque 300 Mg/ml) 100 ml STK-MED ONCE IV Last administered on 04/29t 14:43; Start 04/29/17 at 14:43; Stop 04/29/17 at 14:49; Status DC Cellulose 1 each STK-MED ONCE TP Last administered on 04/29/17 14:54; Start 04/29/17 at 14:54; Stop 04/29/17 at 14:55; Status DC Propofol 20 ml @ As Directed STK-MED ONCE IV ; Start 04/29/17 at 15:02; Stop 04/29/17 at 15:03; Status DC Propofol 20 ml @ As Directed STK-MED ONCE IV ; Start 04/29/17 at 15:02; Stop 04/29/17 at 15:03; Status DC Neostigmine Methylsulfate (Bloxiverz) 10 mg STK-MED ONCE .ROUTE ; Start at 15:02; Stop 04/29/17 at 15:03; Status DC Glycopyrrolate (Robinul) 1 mg STK-MED ONCE .ROUTE ; Start 04/29/17 at 15:02; Stop 04/29/17 at 15:03; Status DC Fentanyl Citrate (Fentanyl 2ml Vial) 100 mcg STK-MED ONCE .ROUTE ; Start at 15:08; Stop 04/29/17 at 15:09; Status DC Sevoflurane (Ultane) 60 ml STK-MED ONCE IH ; Start 04/29/17 at 15:26; Stop at 15:27; Status DC Morphine Sulfate 2 mg STK-MED ONCE .ROUTE ; Start 04/29/17 at 16:15; Stop at 16:16; Status DC Diphenhydramine HCl (Benadryl) 25 mg PRN Q6HRS PRN PO ITCHING; Start 04/29/17 at 16:45 Diphenhydramine HCl (Benadryl) 25 mg PRN Q6HRS PRN IV ITCHING; Start 04/29/17 at 16:45 Enoxaparin Sodium (Lovenox 40mg Syringe) 40 mg Q24H SQ Last administered on 08:35; Start 04/30/17 at 08:00 Sodium Chloride (Normal Saline Flush) 3 ml QSHIFT PRN IV AFTER MEDS AND BLOOD DRAWS; Start 04/29/17 at 16:45 Potassium Chloride/Sodium Chloride 1,000 ml @ 50 mls/hr Q20H IV Last administered on 05/01/17 03:55; Start 04/29/17 at 16:32 Dextrose (Dextrose 50%-Water Syringe) 12.5 gm PRN Q15MIN PRN IV SEE COMMENTS; Start 04/29/17 at 16:45 Oxycodone/ Acetaminophen (Percocet 5/325) 1 tab PRN Q4HRS PRN PO MILD PAIN, 1ST CHOICE Last administered on 05/01/17 13:32; Start 04/29/17 at 16:45 Oxycodone HCl (Roxicodone) 10 mg PRN Q4HRS PRN PO MODERATE PAIN, SEVERE PAIN Last administered on 05/01/17 08:36; Start 04/29/17 at 16:45 Hydromorphone HCl (Dilaudid) 0.5 mg Q3HRS PRN IV PAIN Last administered on 12:51; Start 04/29/17 at 16:45 Docusate Sodium (Colace) 100 mg BID PO Last administered on 05/01/17 08:35; Start 04/29/17 at 21:00 Ondansetron HCl (Zofran) 4 mg PRN Q6HRS PRN IV NAUESA, 1ST CHOICE Last administered on 04/30/17 21:55; Start 04/29/17 at 16:45 Acetaminophen/ Butalbital/ Caffeine (Fioricet) 1 tab PRN Q6HRS PRN PO MIGRAINE HEADACHE; Start 04/30/17 at 17:15 Active Scripts Active Fioricet 50-300-40 Mg Capsule (Butalb/Acetaminophen/Caffeine) 1 Each Capsule 1 Each PO PRN Q4HRS PRN Vitals/I & O Vital Sign - Last 24 Hours 04/30/17 04/30/17 04/30/17 04/30/17 18:00 19:15 19:40 21:55 Temp 98.3 98.3 Pulse 75 Resp 18 16 B/P (MAP) 128/80 (96) Pulse Ox 94 O2 Delivery Room Air Room Air Room Air Room Air 04/30/17 05/01/17 05/01/17 05/01/17 23:00 02:53 03:00 03:55 Temp 98.0 97.8 98.0 97.8 Pulse 77 72 Resp 18 16 18 14 B/P (MAP) 135/85 (102) 124/81 (95) Pulse Ox 95 96 O2 Delivery Room Air Room Air Room Air 05/01/17 05/01/17 05/01/17 05/01/17 07:00 08:00 08:36 09:35 Temp 98.2 98.2 Pulse 71 Resp 18 B/P (MAP) 110/71 (84) Pulse Ox 95 95 97 O2 Delivery Room Air Room Air Room Air Room Air O2 Flow Rate 2.0 2.0 05/01/17 05/01/17 05/01/17 05/01/17 11:00 13:32 14:37 14:38 Temp 98.1 98.1 Pulse 70 Resp 18 B/P (MAP) 118/78 (91) Pulse Ox 97 97 97 O2 Delivery Room Air Room Air Room Air Room Air O2 Flow Rate 2.0 Intake and Output 04/30/17 04/30/17 05/01/17 15:00 23:00 07:00 Intake Total 1308 ml 3570 ml Output Total 50 ml 70 ml Balance -50 ml 1308 ml 3500 ml MUSTAPHA JIMENEZ III, DO May 01, 2017 15:36
--- NOTE | 2017-05-03 14:55 | PATHOLOGY ---
PATHOLOGY REPORT * * * * * * * * FINAL DIAGNOSIS: Gallbladder, laparoscopic cholecystectomy: - Cholelithiasis. - Acute necrotizing and chronic cholecystitis. - Reactive changes of pericystic duct lymph node. COMMENT: There is no evidence of malignancy. (JPM:db; 05/03/2017) REPORT ELECTRONICALLY SIGNED BY: Alen Johnson M.D. DATE/TIME: 05/03/2017 14:54 * * * * * * * * GROSS PATHOLOGY: Received in formalin labeled "Jackie Tafoya, gallbladder and contents," is an 11.0 x 4.5 x 4.1 cm, intact gallbladder with gonzalez-brown, dusky, serosal surfaces. Opening the gallbladder reveals a brown and trabeculated mucosa and an average wall thickness of 0.2 cm. Multiple henning brown and multifaceted calculi are present. The cystic duct appears occluded by multiple calculi. There is a possible lymph node adjacent to cystic duct measuring up to 1.1 cm in greatest dimension. Science Faculty Member sections from the body and fundus are submitted along with the proximal margin in cassettes A1-A2. (SDY; 05/01/2017) INITIAL CPT CODE(S): A; 99126 Professional services performed [place] [address] Technical services performed by [facility] at [address] [place] [address], [address] [address]. SPECIMEN(S) RECEIVED: A.Gallbladder and contents CLINICAL HISTORY: Abdominal pain, cholecystitis PATIENT: JACKIE TAFOYA /AGE: 1 1965 (Age: 51) PATIENT #: [id number] ALT CASE #: SPECIMEN COLLECTION DATE: 04/29/2017 SPECIMEN RECEIVED DATE: 04/30/2017 [facility] - [id number] [place] [address] - PHONE: [phone] * * * END OF REPORT * * *
== END 2017-05-01 15:35 | disposition home or self-care (01) | DRG 418 ==
LOC: ER 15:59 → 4 NORTH 18:30
PROVIDERS: ADMIT Internal Medicine Hematology & Oncology; ATTEND Internal Medicine Hematology & Oncology
PROC: 0FT44ZZ Resection of Gallbladder, Percutaneous Endoscopic Approach (ICD-10-PCS; principal; 2017-04-28)
PROC: BF101ZZ Fluoroscopy of Bile Ducts using Low Osmolar Contrast (ICD-10-PCS; 2017-04-28)
DX: K80.00 Calculus of gallbladder with acute cholecystitis without obstruction (principal); J98.11 Atelectasis; D50.9 Iron deficiency anemia, unspecified; E87.6 Hypokalemia; G43.909 Migraine, unspecified, not intractable, without status migrainosus; M51.27 Other intervertebral disc displacement, lumbosacral region; M43.06 Spondylolysis, lumbar region; K82.8 Other specified diseases of gallbladder
CPT/HCPCS: 36415; 74022; 74177; 74300; 80048; 80076; 80307; 81001; 82553; 82728; 83540; 83550; 83690; 83735; 83880; 84484; 85025; 85610; 87086; 88304; 93005; 96361; 96374; 96375; J1100; J1170; J1610; J1650; J2250; J2270; J2405; J2543; J2704; J2710; J3010; J3490; J7030; J7120; Q9967; S0028; 99285-25; G0479; J2001

== ENCOUNTER 2018-02-27 10:23 | Emergency (ER) | payer OTHER ==
[~2018-02-27] VITALS: Ht 157.5 cm; Wt 66.2 kg
[2018-02-27 11:00] VITALS: BP 135/84
[2018-02-27] MEDS ORDERED: TRIA15OI TP (11:49)
[2018-02-27] MEDS ORDERED: MUPI15CR TP (11:49)
[2018-02-27] MEDS ORDERED: CETI10TA22 PO (11:49)
--- NOTE | 2018-02-27 11:49 | PHYS DOC ---
Past Medical History Past Medical History: Other Additional Past Medical Histor: MIGRAINES Past Surgical History: Cholecystectomy, Tubal ligation Alcohol Use: None Drug Use: None Adult General Chief Complaint Chief Complaint: INSECT BITE [facility] HPI Patient is a 52 year old female who presents with an insect bite to the left biceps that she noted 2 days ago. Patient denies any fever. Denies any difficulty breathing. Denies any tongue or throat swelling. Review of Systems Review of Systems Constitutional: Denies fever or chills [] Eyes: Denies change in visual acuity, redness, or eye pain [] HENT: Denies nasal congestion or sore throat [] Respiratory: Denies cough or shortness of breath [] Cardiovascular: No additional information not addressed in HPI [] GI: Denies abdominal pain, nausea, vomiting, bloody stools or diarrhea [] : Denies dysuria or hematuria [] Musculoskeletal: Denies back pain or joint pain [] Integument: insect bite to the left biceps Neurologic: Denies headache, focal weakness or sensory changes [] All other systems were reviewed and found to be within normal limits, except as documented in this note. Current Medications Current Medications Current Medications Medications (Trade) Dose Ordered Sig/Dionicio Start Time Stop Time Status Last Admin Dose Admin Diphtheria/ Tetanus/Acell Pertussis (Boostrix) 0.5 ml ONCE ONCE 02/27/18 12:00 02/27/18 12:01 Allergies Allergies Allergies Coded Allergies Type Severity Reaction Last Updated Verified No Known Drug Allergies 04/29/17 No Physical Exam Physical Exam Constitutional: Well developed, well nourished, no acute distress, non-toxic appearance. [] HENT: Normocephalic, atraumatic, bilateral external ears normal, oropharynx moist, no oral exudates, nose normal. [] Eyes: PERRLA, EOMI, conjunctiva normal, no discharge. [] Neck: Normal range of motion, no tenderness, supple, no stridor. [] Cardiovascular:Heart rate regular rhythm, no murmur [] Lungs & Thorax: Bilateral breath sounds clear to auscultation [] Abdomen: Bowel sounds normal, soft, no tenderness, no masses, no pulsatile masses. [] Skin: Warm, dry, left biceps with a tiny blister and surrounding approximately 3 cm over erythema. The area is firm warm to touch no fluctuance. Neurovascular exam is intact to the left upper extremity. Back: No tenderness, no CVA tenderness. [] Extremities: No tenderness, no cyanosis, no clubbing, ROM intact, no edema. [] Neurologic: Alert and oriented X 3, normal motor function, normal sensory function, no focal deficits noted. [] Psychologic: Affect normal, judgement normal, mood normal. [] Current Patient Data Vital Signs Vital Signs Date Time Temp Pulse Resp B/P (MAP) Pulse Ox O2 Delivery O2 Flow Rate FiO2 02/27/18 11:00 98.2 66 16 135/84 (101) Room Air 98.2 EKG EKG [] Radiology/Procedures Radiology/Procedures [] Course & Med Decision Making Course & Med Decision Making Pertinent Labs and Imaging studies reviewed. (See chart for details) This is a 52-year-old female patient presenting to the ED today with an insect bite to the left biceps that she noted 2 days ago. It has a blister erythema and is very firm to touch, no fluctuance. Tetanus is updated. Discharged with triamcinolone cream and Bactroban ointment instructed to also take zyrtec-rx given. She as no systemic symptoms to warrant oral steroids. Follow-up with primary care doctor in one to 2 weeks. Provided return precautions and discharged in stable condition. Dragon Disclaimer Dragon Disclaimer This electronic medical record was generated, in whole or in part, using a voice recognition dictation system. Departure Departure Impression: Primary Impression: Insect bite of left upper extremity Disposition: HOME, SELF-CARE Condition: STABLE Referrals: NO PCP (PCP) follow up in one week Patient Instructions: Insect Bite, [id number] Additional Instructions: You were evaluated in the emergency room for an insect bite. Use the prescribed medications as ordered. Follow-up with your doctor in 1-2 weeks. You can also apply warm compresses to the area area twice a day. Scripts Cetirizine Hcl (ZYRTEC) 10 Mg Tablet 1 TAB PO DAILY, #30 TAB 2 Refills Prov: MUTUNGA,HARPAL HAMMERER HELPER 02/27/18 Mupirocin Calcium (BACTROBAN CREAM) 15 Gm Cream..g. 1 JEANE TP TID, #30 GM Prov: MUTUNGA,HARPAL HAMMERER HELPER 02/27/18 Triamcinolone Acetonide (TRIAMCINOLONE ACETONIDE 0.1% OINT) 15 Gm Oint...g. 1 JEANE TP BID for WOUND CARE, #1 TUBE Prov: HARPAL GUTIERREZ HAMMERER HELPER 02/27/18 Problem Qualifiers Primary Impression: Insect bite of left upper extremity Encounter type: initial encounter Qualified Codes: S40.862A - Insect bite ( nonvenomous) of left upper arm, initial encounter; W57.XXXA - Bitten or stung by nonvenomous insect and other nonvenomous arthropods, initial encounter HARPAL GUTIERREZ HAMMERER HELPER Feb 27, 2018 11:49
[2018-02-27] MEDS ORDERED: DIPHTH,PERTUSS(ACELL),TET TOX 0.5 ML DISP.SYRIN. VAX IM ONE (12:00)
== END 2018-02-27 12:29 | disposition home or self-care (01) ==
LOC: ER 10:23
DX: S40.862A Insect bite (nonvenomous) of left upper arm, initial encounter (principal); G43.909 Migraine, unspecified, not intractable, without status migrainosus; Z90.49 Acquired absence of other specified parts of digestive tract; Z98.51 Tubal ligation status; W57.XXXA Bitten or stung by nonvenomous insect and other nonvenomous arthropods, initial encounter; Y93.89 Activity, other specified; Y92.89 Other specified places as the place of occurrence of the external cause; Y99.8 Other external cause status
CPT/HCPCS: 90471; 90715; 99283

== ENCOUNTER 2020-12-15 14:00 | Emergency (ER) | payer BC, OTHER ==
[~2020-12-15] VITALS: Ht 157.5 cm; Wt 66.3 kg
[~2020-12-15 14:00] MED LIST changes: +CETI10TA74 PO; +MUPI15CR TP; +TRIA15OI TP
--- NOTE | 2020-12-15 14:04 | PHYS DOC ---
Past Medical History Past Medical History: Diabetes-Type II (PRE-DIABETIC), Hypertension, Other Additional Past Medical Histor: MIGRAINES Past Surgical History: Cholecystectomy, Tubal ligation Smoking Status: Never Smoker Alcohol Use: None Drug Use: None General Adult EDM: Chief Complaint: HEADACHE HPI: HPI: Patient is a 55-year-old female presenting for acute on chronic headaches. Patient here with son who is primary historian and small equipment operator. States headaches have been a known issue for patient for past 12 years. She has been battling these on and off and reports most headaches resolve with typical [id number] NSAIDs and/or Tylenol use. She has not followed up with a neurologist or other subspecialist in outpatient setting for further follow-up on this. Reports she used to have Fioricet which helped, does not have any of this currently. She denies any known diagnosis of migraines. Reports vague generalized head tightness that does not radiate, no involvement of the neck or back. There are no known exacerbating factors, she does not experience any pre or post headache symptoms. She has been seen in emergency departments in the past for this but never admitted. Son states she has never had imaging of her head done before. Patient presenting for dull ongoing headache that is cu rrently rated 7/10 severity without any neck pain/rigidity, blurred vision, chest pain, abdominal pain, dysuria, changes in motor or sensory or neuro function. Does not see her primary care physician often, has known history of hypertension for which she takes her medications most days out of the week in addition to prediabetes Review of Systems: Review of Systems: Fourteen body systems of review of systems have been reviewed. See HPI for pertinent positives and negative responses, other bedolla all other systems are negative, non-pertinent or non-contributory Heart Score: C/O Chest Pain: No HEART Score for Chest Pain: HEART Score for Chest Pain Response (Comments) Value History Slighlty/Non-Suspicious 0 ECG Normal 0 Age >45 - < 65 1 Risk Factors 1 or 2 Risk Factors 1 Troponin < Normal Limit 0 Total 2 Risk Factors: Risk Factors: DM, Current or recent (<one month) smoker, HTN, HLP, family history of CAD, obesity. Risk Scores: Score 0 - 3: 2.5% MACE over next 6 weeks - Discharge Home Score 4 - 6: 20.3% MACE over next 6 weeks - Admit for Clinical Observation Score 7 - 10: 72.7% MACE over next 6 weeks - Early Invasive Strategies Allergies: Allergies: Allergies Coded Allergies Type Severity Reaction Last Updated Verified No Known Drug Allergies 04/29/17 No Physical Exam: PE: Constitutional: Well developed, well nourished, no acute distress, non-toxic appearance. HENT: Normocephalic, atraumatic, bilateral external ears normal, oropharynx dry, no oral exudates, nose normal. Eyes: PERRLA, EOMI, conjunctiva normal, no discharge. Neck: Normal range of motion, no tenderness, supple, no stridor. No meningeal signs and/or nuchal rigidity Cardiovascular: Heart rate regular, sinus rhythm, no murmurs rubs or gallops Lungs & Thorax: Bilateral breath sounds clear to auscultation Abdomen: Bowel sounds normal, soft, no tenderness, no masses, no pulsatile masses. Nonsurgical abdomen, no peritoneal signs Skin: Warm, dry, no erythema, no rash. Back: No tenderness, no CVA tenderness. Extremities: No tenderness, no cyanosis, no clubbing, ROM intact, no edema. Neurologic: Alert and oriented X 3, cranial nerves II through XII intact, normal motor & sensory function of all x4 extremities, no focal deficits noted. Downgoing toes bilaterally. Psychologic: Affect normal, judgement normal, mood normal. Current Patient Data: Labs: Current Medications Medications (Trade) Dose Ordered Sig/Dionicio Route PRN Reason Start Time Stop Time Status Last Admin Dose Admin Sodium Chloride 500 ml @ 500 mls/hr 1X ONCE IV 12/15/20 14:30 12/15/20 15:29 DC 12/15/20 14:46 Prochlorperazine Edisylate (Compazine) 10 mg 1X ONCE IV 12/15/20 14:30 12/15/20 14:31 DC 12/15/20 14:46 Diphenhydramine HCl (Benadryl) 25 mg 1X ONCE IVP 12/15/20 14:30 12/15/20 14:31 DC 12/15/20 14:46 Vital Signs: Vital Signs Date Time Temp Pulse Resp B/P (MAP) Pulse Ox O2 Delivery O2 Flow Rate FiO2 12/15/20 14:00 97.7 77 18 143/100 (101) 98 Room Air 97.7 Vital Signs Date Time Temp Pulse Resp B/P (MAP) Pulse Ox O2 Delivery O2 Flow Rate FiO2 12/15/20 16:03 56 19 123/84 (97) 96 Room Air 12/15/20 14:00 97.7 97.7 EKG: EKG: EKG ordered and interpreted by myself at 1418 hrs. as sinus rhythm at 80 bpm, QTC 493 otherwise unremarkable intervals, no axis deviation, no acute ischemic findings, no STEMI Radiology/Procedures: Radiology/Procedures: INDICATION: Reason: CHRONIC HEADACHE / Spl. Instructions: / History: COMPARISON: September 2016 TECHNIQUE: Axial CT images obtained through the head without intravenous contrast. One or more of the following individualized dose reduction techniques were utilized for this examination: 1. Automated exposure control; 2. Adjustment of the mA and/or kV according to patient size; 3. Use of iterative reconstruction technique. FINDINGS: No intracranial hemorrhage. No midline shift. Basal cisterns patent. Ventricles and sulci are unremarkable. No acute osseous abnormality. Small amount of fluid in paranasal sinuses. IMPRESSION: * No acute intracranial hemorrhage. Electronically signed by: Juliano Ness MD (12/15/2020 3:20 PM) [id number] Course & Med Decision Making: Course & Med Decision Making VSS. Physical exam and ER workup non-concerning for any emergent/surgical issues. No red flag findings requiring further workup such as need for LP etc. Patient's symptoms improved with ER intervention, continued supportive care and outpatient follow-up advised Lb Disclaimer: Lb Disclaimer: This electronic medical record was generated, in whole or in part, using a voice recognition dictation system. Departure Departure Impression: Primary Impression: Headache Additional Impressions: HTN (hypertension) Microcytic anemia Disposition: HOME / SELF CARE / HOMELESS Condition: IMPROVED Referrals: NO PCP (PCP) Patient Instructions: General Headache Without Cause, Iron Deficiency Anemia Additional Instructions: You were seen for a headache. Your symptoms improved with Benadryl, anti-nausea medication and gentle fluid hydration. Remaining ER work-up was nonconcerning for any emergent or surgical issues. I did disclose findings of microcytic anemia for which she should take prescribed iron and have further follow-up with primary care physician. I also advised you take your outpatient blood pressure medication as scheduled and keep dedicated blood pressure log for review with primary care physician on outpatient follow-up. You should return to the ED if you develop worsening pain, vision change, numbness, tingling, weakness, vomiting, fever, neck pain, or any other new or concerning symptoms. Scripts Ferric Citrate (Ferric Citrate) 210 Mg Tablet 2 TAB PO TID for 30 Days, #180 TAB 0 Refills Prov: CORRINA RYAN DO 12/15/20 Butalbital/Aspirin/Caffeine ([id number] 50-325-40) 1 Each Tablet 1 TAB PO PRN DAILY PRN for headache MDD 1 Tablet(s) for 15 Days, #15 TAB 0 Refills Prov: CORRINA RYAN DO 12/15/20 CORRINA RYAN DO Dec 15, 2020 14:04
[2020-12-15] MEDS ORDERED: diphenhydrAMINE 50 MG/ML VIAL IVP ONE (14:30)
[2020-12-15] MEDS ORDERED: IV NORMAL SALINE 500ML BAG 500 ML IV ONE (14:30)
[2020-12-15] MEDS ORDERED: PROCHLORPERAZINE 10 MG/2 ML VIAL. IV ONE (14:30)
[2020-12-15 14:40] LABS: BASO % 1 % (0-3); EOS # 0.3 x10^3/uL (0.0-0.7); EOS % 5 % (0-3); HEMATOCRIT 35.5 % (36.0-47.0); HEMOGLOBIN 11.9 g/dL (12.0-15.5); LYMPH # 1.6 x10^3/uL (1.0-4.8); LYMPH % 21 % (24-48); MEAN CORPUSCULAR HEMOGLOBIN 24 pg (25-35); MEAN CORPUSCULAR HGB CONC 33 g/dL (31-37); MEAN CORPUSCULAR VOLUME 73 fL (79-100); MONO # 0.5 x10^3/uL (0.0-1.1); MONO % 7 % (0-9); NEUT # 4.9 x10^3/uL (1.8-7.7); NEUT % 67 % (31-73); PLATELET COUNT 258 x10^3/uL (140-400); RED BLOOD COUNT 4.88 x10^6/uL (3.50-5.40); RED CELL DISTRIBUTION WIDTH 14.8 % (11.5-14.5); WHITE BLOOD COUNT 7.4 x10^3/uL (4.0-11.0)
[2020-12-15 14:51] LABS: CALCIUM 8.6 mg/dL (8.5-10.1); CREATININE 0.5 mg/dL (0.6-1.0); GFR 128.1; POTASSIUM 3.4 mmol/L (3.5-5.1)
--- NOTE | 2020-12-15 15:22 | RAD ---
INDICATION: Reason: CHRONIC HEADACHE / Spl. Instructions: / History: COMPARISON: September 2016 TECHNIQUE: Axial CT images obtained through the head without intravenous contrast. One or more of the following individualized dose reduction techniques were utilized for this examinat ion: 1. Automated exposure control; 2. Adjustment of the mA and/or kV according to patient size; 3 . Use of iterative reconstruction technique. FINDINGS: No intracranial hemorrhage. No midline shift. Basal cisterns patent. Ventricles and sulci are unremarkable. No acute osseous abnormality. Small amount of fluid in paranasal sinuses. IMPRESSION: * No acute intracranial hemorrhage. Electronically signed by: Juliano Ness MD (12/15/2020 3:20 PM) [id number]
[2020-12-15] MEDS ORDERED: BUTA-177 PO (15:52)
[2020-12-15] MEDS ORDERED: FERR210T PO (15:55)
[2020-12-15 16:03] VITALS: BP 123/84
== END 2020-12-15 16:17 | disposition home or self-care (01) ==
LOC: ER 14:00
DX: G43.909 Migraine, unspecified, not intractable, without status migrainosus (principal); I10 Essential (primary) hypertension; D50.9 Iron deficiency anemia, unspecified; E11.9 Type 2 diabetes mellitus without complications
CPT/HCPCS: 36415; 70450; 80048; 84484; 85025; 93005; 96361; 96374; 96375; 99285; J0780; J1200; J7040

== ENCOUNTER 2020-12-21 13:11 | Emergency (ER) | payer BC ==
[~2020-12-21] VITALS: Ht 157.5 cm; Wt 63.6 kg
[~2020-12-21 13:11] MED LIST changes: +BUTA-177 PO; +FERR210T PO
[2020-12-21 14:35] VITALS: BP 154/87
[2020-12-21] MEDS ORDERED: BUTALB/APAP/CAFEIN 50/325/40MG TABLET. PO STA (15:13)
[2020-12-21] MEDS ORDERED: BUTA1TAB23 PO (15:18)
--- NOTE | 2020-12-21 15:22 | PHYS DOC ---
Past Medical History Past Medical History: Diabetes-Type II, Hypertension, Other Additional Past Medical Histor: MIGRAINES Past Surgical History: Cholecystectomy, Tubal ligation, Other Additional Past Surgical Histo: I&D L UPPER ARM Smoking Status: Never Smoker Alcohol Use: None Drug Use: None General Adult EDM: Chief Complaint: MEDICATION REFILL HPI: HPI: Patient is a 55 year old female who was brought here by her son for evaluation of headache. Patient has history of migraine headache, she was evaluated here on December 15 with the same headache, she was discharged home with a prescription for Fioricet which she had in the past that helped her headache. Patient's son had tried to knot picker cloth the prescribed medication but the pharmacy where the medication was electronicly sent to did not carry that medication. Patient tried to ask the pharmacist to move that prescription to another pharmacy where the medication is available. Due to it is a control substance, the prescription was not transferable. Therefore patient's son brought her back here for another prescription. Patient denies any chest pain, no cough, no fever, no neck pain. Review of Systems: Review of Systems: Constitutional: Denies fever or chills. [] Eyes: Denies change in visual acuity. [] HENT: Denies nasal congestion or sore throat. [] Respiratory: Denies cough or shortness of breath. [] Cardiovascular: Denies chest pain or edema. [] GI: Denies abdominal pain, nausea, vomiting, bloody stools or diarrhea. [] : Denies dysuria. [] Musculoskeletal: Denies back pain or joint pain. [] Integument: Denies rash. [] Neurologic: Positive headache, no focal weakness or sensory changes. [] Endocrine: Denies polyuria or polydipsia. [] Lymphatic: Denies swollen glands. [] Psychiatric: Denies depression or anxiety. [] Heart Score: C/O Chest Pain: N/A Risk Factors: Risk Factors: DM, Current or recent (<one month) smoker, HTN, HLP, family history of CAD, obesity. Risk Scores: Score 0 - 3: 2.5% MACE over next 6 weeks - Discharge Home Score 4 - 6: 20.3% MACE over next 6 weeks - Admit for Clinical Observation Score 7 - 10: 72.7% MACE over next 6 weeks - Early Invasive Strategies Allergies: Allergies: Allergies Coded Allergies Type Severity Reaction Last Updated Verified No Known Drug Allergies 04/29/17 No Physical Exam: PE: Constitutional: Well developed, well nourished, no acute distress, non-toxic appearance. [] HENT: Normocephalic, atraumatic, bilateral external ears normal, oropharynx moist, no oral exudates, nose normal. [] Eyes: PERRLA, EOMI, conjunctiva normal, no discharge. [] Neck: Normal range of motion, no tenderness, supple, no stridor. [] Cardiovascular:Heart rate regular rhythm, no murmur [] Lungs & Thorax: Bilateral breath sounds clear to auscultation [] Abdomen: Bowel sounds normal, soft, no tenderness, no masses, no pulsatile masses. [] Skin: Warm, dry, no erythema, no rash. [] Back: No tenderness, no CVA tenderness. [] Extremities: No tenderness, no cyanosis, no clubbing, ROM intact, no edema. [] Neurologic: Alert and oriented X 3, normal motor function, normal sensory function, no focal deficits noted. [] Psychologic: Affect normal, judgement normal, mood normal. [] Current Patient Data: Vital Signs: Vital Signs Date Time Temp Pulse Resp B/P (MAP) Pulse Ox O2 Delivery O2 Flow Rate FiO2 12/21/20 14:35 98.3 66 16 154/87 (97) 99 98.3 EKG: EKG: [] Radiology/Procedures: Radiology/Procedures: [] Course & Med Decision Making: Course & Med Decision Making Pertinent Labs and Imaging studies reviewed. (See chart for details) [] Dragon Disclaimer: Lb Disclaimer: This electronic medical record was generated, in whole or in part, using a voice recognition dictation system. Departure Departure Impression: Primary Impression: Headache Disposition: HOME / SELF CARE / HOMELESS Condition: IMPROVED Referrals: NO PCP (PCP) Please follow up with your doctor in 2 days for reevaluation. Patient Instructions: General Headache Without Cause Scripts Butalb/Acetaminophen/Caffeine ([id number] 50-325-40) 1 Each Tablet 1 EACH PO Q4HRS PRN for MIGRAINE HEADACHE, #15 TAB Prov: TRAMAINE RAMOS DO 12/21/20 TRAMAINE RAMOS DO Dec 21, 2020 15:21
== END 2020-12-21 15:30 | disposition home or self-care (01) ==
LOC: ER 13:11
DX: G43.909 Migraine, unspecified, not intractable, without status migrainosus (principal); E11.9 Type 2 diabetes mellitus without complications; I10 Essential (primary) hypertension
CPT/HCPCS: 99283